=== PATIENT | female | born 1930 | race Caucasian/White ===

== ENCOUNTER 2017-09-10 09:06 | Inpatient (IN) | payer MEDICARE ==
--- NOTE | 2017-09-10 09:23 | ED PDOC ---
Arrival/HPI - General Chief Complaint: Abdominal Pain Time Seen by Provider: 09/10/17 09:11 Historian: Patient, Family - History of Present Illness Narrative History of Present Illness (Text): 09/10/17 09:13 87 y/o female, pmh including htn/hyperlipidemia/cad/chf/colitis, nkda, biba c/o cough/shortness of breath and chronic abdominal pain for 5 days. As per the patient and family, the patient has chronic abdominal pain but been having exertional shortness of breath with dry cough for the past 5 days, seen by the pmd Dr. Lieberman which started on the azithromycin with limited relief. Pt. has no fever or chills, admits dry cough with exertional shortness of breath, no chest pain or headache, no neck stiffness, no nausea or vomiting, no night sweat , no rash, no black color stool or discoloration, no other medical or psychological complaints. Past Medical History - Provider Review Nursing Documentation Reviewed: Yes - Tetanus Immunization Tetanus Immunization: Unknown - Reproductive Menopause: Yes - Cardiac Hx Hypertension: Yes - Pulmonary Hx Respiratory Disorders: No - Neurological Hx Neurological Disorder: No - HEENT Hx HEENT Disorder: Yes Hx Cataracts: Yes (L EYE CATARACT REMOVED) - Renal Hx Renal Disorder: No - Endocrine/Metabolic Hx Endocrine Disorders: No - Hematological/Oncological Hx Blood Disorders: No - Integumentary Hx Dermatological Disorder: No - Musculoskeletal/Rheumatological Hx Musculoskeletal Disorders: No Hx Falls: No - Gastrointestinal Hx Gastrointestinal Disorders: No - Genitourinary/Gynecological Hx Genitourinary Disorders: Yes (CESEREAN SECTION X 1) - Psychiatric Hx Depression: No Hx Emotional Abuse: No Hx Physical Abuse: No Hx Substance Use: No - Surgical History Hx Open Heart Surgery: Yes - Anesthesia Hx Anesthesia: No Hx Anesthesia Reactions: No Hx Malignant Hyperthermia: No - Suicidal Assessment Feels Threatened In Home Enviroment: No Family/Social History - Physician Review Nursing Documentation Reviewed: Yes Family/Social History: Unknown Family HX Smoking Status: Never Smoked Hx Alcohol Use: No Hx Substance Use: No Hx Substance Use Treatment: No Allergies/Home Meds Allergies/Adverse Reactions: Allergies No Known Allergies Allergy (Verified 11/29/13 19:37) Home Medications: Home Meds Medication Instructions Recorded Confirmed Acetaminophen [Tylenol Extra 500 mg PO Q4 PRN 11/29/13 09/10/17 Strength] Ciprofloxacin HCl [Cipro] 500 mg PO BID 07/13/14 09/10/17 Lisinopril 10 mg PO DAILY 07/13/14 09/10/17 Omeprazole 20 mg PO DAILY 07/13/14 09/10/17 Oxycodone HCl/Acetaminophen 1 tab PO BID 07/13/14 09/10/17 [Oxycodone HCl and Acetaminophen 325 mg-5 mg] Simvastatin 10 mg PO DAILY 07/13/14 07/13/14 Vitamin B Complex & Vitamin C 1 tab PO DAILY 07/13/14 09/10/17 [Strovite] Review of Systems - Review of Systems Constitutional: absent: Fatigue, Fevers Eyes: absent: Vision Changes ENT: absent: Hearing Changes Respiratory: SOB, Cough. absent: Sputum, Wheezing Cardiovascular: absent: Chest Pain Gastrointestinal: Abdominal Pain. absent: Diarrhea, Nausea, Vomiting Skin: absent: Rash, Pruritis Neurological: absent: Headache, Dizziness Psychiatric: absent: Anxiety, Depression, Suicidal Ideation Physical Exam Vital Signs Reviewed: Yes Vital Signs Temp Pulse Resp BP Pulse Ox 09/10/17 11:44 115/57 L 09/10/17 10:54 68 18 118/65 98 09/10/17 09:18 99.0 F 75 18 116/60 97 09/10/17 09:10 18 97 Temperature: Afebrile Blood Pressure: Normal Pulse: Regular Respiratory Rate: Normal Appearance: Positive for: Well-Appearing, Non-Toxic, Comfortable Pain Distress: Mild Mental Status: Positive for: Alert and Oriented X 3 - Systems Exam Head: Present: Atraumatic, Normocephalic Pupils: Present: PERRL Extroacular Muscles: Present: EOMI Conjunctiva: Present: Normal Mouth: Present: Moist Mucous Membranes Neck: Present: Normal Range of Motion Respiratory/Chest: Present: Clear to Auscultation, Good Air Exchange. No: Respiratory Distress, Accessory Muscle Use Cardiovascular: Present: Regular Rate and Rhythm, Normal S1, S2, Peripheal Pulses Present. No: Murmurs, Irregular Rhythm, Tachycardic, Bradycardic, Rub, Gallop, Muffled Abdomen: Present: Tenderness (mild epigastric and lt. sided abdominal tenderness ), Normal Bowel Sounds. No: Distention, Peritoneal Signs, Rebound, Guarding Back: Present: Normal Inspection Upper Extremity: Present: Normal Inspection. No: Cyanosis, Edema Lower Extremity: Present: Normal Inspection. No: Edema Neurological: Present: GCS=15, CN II-XII Intact, Speech Normal Skin: Present: Warm, Dry, Normal Color. No: Rashes Psychiatric: Present: Alert, Oriented x 3, Normal Insight, Normal Concentration Medical Decision Making ED Course and Treatment: 09/10/17 09:34 -labs/cardiac enzyme/bnp/ua -CXR -CT abdomen and pelvis -IV pepcid/aspirin 325mg po -EKG -Observe and reassess 09/10/17 10:08 -Pt. declined vbg lab work. 09/10/17 11:23 -HEART Score: 6, moderate -WELLS Criteria is negative for PE -EKG: SR @ 75 BPM, 1st degree heart block, nonspecific ST changes noted on the V2 and V4 compared with previous ekgs, no T wave inversion. -Chest xray: +consolidation/infiltrate noted -CT abdomen and pelvis: No acute findings -Labs are non-significant except: BNP 6900 from 5710, Creatinine 1.4 from 0.9 -UA show +UTI, urine culture and rocephine/azithromycin 1gm IV ordered -IV lasix 20mg ordered -Blood culture added 09/10/17 11:45 -I explained all lab works and radiology studies with the family and Dr. Lieberman , both agreed to be admitted with Dr. Wagner and Dr. Ortega for the routine - Lab Interpretations Lab Results: 09/10/17 09:40 09/10/17 09:40 Lab Results 09/10/17 10:00: Urine Color Yellow, Urine Appearance Sl cloudy, Urine pH 6.5, Ur Specific Meherrin 1.010, Urine Protein 30 H, Urine Glucose (UA) Negative, Urine Ketones Negative, Urine Blood Moderate H, Urine Nitrate Negative, Urine Bilirubin Negative, Urine Urobilinogen 0.2, Ur Leukocyte Esterase Large H, Urine RBC 2 - 5, Urine WBC Tntc, Ur Epithelial Cells 6 - 8, Urine Bacteria Small , Urine Other Mucus 09/10/17 09:40: PT 14.7 H, INR 1.27 H, APTT 28.0 09/10/17 09:40: WBC 9.7 D, RBC 3.76, Hgb 10.8 L, Hct 32.6 L, MCV 86.7, MCH 28.7 , MCHC 33.1, RDW 14.0, Plt Count 251, MPV 9.9, Gran % 64.0, Lymph % (Auto) 21.3 L, Denali % (Auto) 14.0 H, Eos % (Auto) 0.4 L, Baso % (Auto) 0.3, Gran # 6.19, Lymph # (Auto) 2.1, Denali # (Auto) 1.4 H, Eos # (Auto) 0.0, Baso # (Auto) 0.03 09/10/17 09:40: Sodium 139, Potassium 4.4, Chloride 100, Carbon Dioxide 29, Anion Gap 14, BUN 21, Creatinine 1.4 H, Est GFR ( Amer) 43, Est GFR (Non- Af Amer) 36, Random Glucose 118 H, Calcium 10.2, Magnesium 2.1, Total Bilirubin 0.5, AST 22, ALT 26, Alkaline Phosphatase 62, Lactate Dehydrogenase 455, Total Creatine Kinase 25 L, Troponin I 0.02 D, NT-Pro-B Natriuret Pep 6900 H, Total Protein 8.2, Albumin 3.9, Globulin 4.3, Albumin/Globulin Ratio 0.9 L - RAD Interpretation Radiology Orders: 09/10/17 09:27 ABD & PELVIS W/O PO OR IV CONT [CT] Stat CHEST TWO VIEWS (PA/LAT) [RAD] Stat Chest xray: ISTORY: cough, shortness of breath COMPARISON: 07/13/2014 TECHNIQUE: Chest PA and lateral FINDINGS: LUNGS: There is minimal vascular congestion. There is a minimal patchy infiltrate in the right lower lobe PLEURA: No significant pleural effusion identified. No pneumothorax apparent. CARDIOVASCULAR: Mild cardiomegaly OSSEOUS STRUCTURES: Sternal wires VISUALIZED UPPER ABDOMEN: Normal. OTHER FINDINGS: None. IMPRESSION: There is minimal vascular congestion. There is a minimal patchy infiltrate in the right lower lobe CT abdomen and pelvis: LOWER THORAX: Unremarkable. LIVER: Unremarkable. No gross lesion or ductal dilatation. GALLBLADDER AND BILE DUCTS: There is a small stone in the gallbladder PANCREAS: Unremarkable. No gross lesion or ductal dilatation. SPLEEN: Unremarkable. ADRENALS: Unremarkable. No mass. KIDNEYS AND URETERS: Unremarkable. No hydronephrosis. No solid mass. There is minimal perinephric stranding on the left. There is no evidence of hydronephrosis or obstruction. VASCULATURE: Unremarkable. No aortic aneurysm. BOWEL: Unremarkable. No obstruction. No gross mural thickening. APPENDIX: Unremarkable. Normal appendix. PERITONEUM: Unremarkable. No free fluid. No free air. LYMPH NODES: Unremarkable. No enlarged lymph nodes. BLADDER: Unremarkable. REPRODUCTIVE: Unremarkable. BONES: No acute fracture. OTHER FINDINGS: None. IMPRESSION: No acute findings Phone Specialist: Radiologist - EKG Interpretation EKG Interpretation (Text): 09/10/17 09:35 -EKG: SR @ 75 BPM, 1st degree heart block, nonspecific ST changes noted on the V2 and V4 compared with previous ekgs, no T wave inversion. Interpreted by ED Physician: Yes Type: 12 lead EKG Comparison: Com.w/previous EKG - Medication Orders Current Medication Orders: Azithromycin (Zithromax 500mg In Ns) 500 mg in 250 mls @ 167 mls/hr IVPB STAT STA PRN Reason: Protocol Stop: 09/10/17 12:50 Last Admin: 09/10/17 11:43 Dose: 167 mls/hr eMAR Start Stop Document 09/10/17 11:43 SF (Rec: 09/10/17 11:44 [place] [facility] [id number] Intravenous Solution Start Date 09/10/17 Start Time 11:43 End Date 09/10/17 End time 13:15 Total Infusion Time 92 Discontinued Medications Aspirin (Aspirin) 325 mg PO STAT STA Stop: 09/10/17 09:28 Last Admin: 09/10/17 10:09 Dose: 325 mg Famotidine (Pepcid) 20 mg IVP STAT STA Stop: 09/10/17 09:28 Last Admin: 09/10/17 10:10 Dose: 20 mg IVP Administration Document 09/10/17 10:10 SF (Rec: 09/10/17 10:10 [place] [facility] [id number] Charges for Administration # of IVP Administrations 1 Furosemide (Lasix) 20 mg IVP STAT STA Stop: 09/10/17 11:18 Last Admin: 09/10/17 11:44 Dose: 20 mg MAR Blood Pressure Document 09/10/17 11:44 SF (Rec: 09/10/17 11:46 [place] [facility] [id number] Blood Pressure Blood Pressure (100/60-150/90) 115/57 IVP Administration Document 09/10/17 11:44 SF (Rec: 09/10/17 11:46 [place] [facility] [id number] Charges for Administration # of IVP Administrations 1 Ceftriaxone Sodium (Rocephin 1 Gram Ivpb) 1 gm in 100 mls @ 200 mls/hr IVPB STAT STA PRN Reason: Protocol Stop: 09/10/17 11:00 Last Admin: 09/10/17 10:59 Dose: 200 mls/hr eMAR Start Stop Document 09/10/17 10:59 SF (Rec: 09/10/17 10:59 SF [id number] Intravenous Solution Start Date 09/10/17 Start Time 10:59 End Date 09/10/17 End time 11:30 Total Infusion Time 31 - PA / [employer] / Resident Statement / has reviewed & agrees with the documentation as recorded. Disposition/Present on Arrival - Present on Arrival Any Indicators Present on Arrival: No History of DVT/PE: No History of Uncontrolled Diabetes: No Urinary Catheter: No History of Decub. Ulcer: No History Surgical Site Infection Following: None - Disposition Have Diagnosis and Disposition been Completed?: Yes Diagnosis: Pneumonia, CHF (congestive heart failure), UTI (urinary tract infection), Failure of outpatient treatment Disposition: HOSPITALIZED Disposition Time: 11:23 Patient Plan: Admission, Telemetry Patient Problems: Current Active Problems Problem Status Onset Pneumonia Acute CHF (congestive heart failure) Acute UTI (urinary tract infection) Acute Failure of outpatient treatment Acute Condition: STABLE Discharge Instructions (ExitCare): Heart Failure (ED) Referrals: [facility], [Non-Staff] - Follow up with primary Forms: Vuze (Slovenian)
[2017-09-10 10:01] LABS: ALB/GLOB RATIO 0.9 (1.1-1.8); ALBUMIN 3.9 g/dL (3.0-4.8); BASO # 0.03 K/mm3 (0.0-2.0); BASO % 0.3 % (0.0-3.0); CALCIUM 10.2 mg/dL (8.4-10.5); EOS % 0.4 % (1.5-5.0); GRAN # 6.19 (1.4-6.5); HEMOGLOBIN 10.8 g/dL (12.0-16.0); LYMPH # 2.1 (1.2-3.4); LYMPH % 21.3 % (22.0-35.0); MEAN CELL VOLUME 86.7 fl (80.0-105.0); MEAN CORPUSCULAR HEMOGLOBIN 28.7 pg (25.0-35.0); MEAN CORPUSCULAR HGB CONC 33.1 g/dl (31.0-37.0); MEAN PLATELET VOLUME 9.9 fl (7.0-11.0); MONO # 1.4 (0.1-0.6); RBC 3.76 10^6/uL (3.5-6.1); WHITE BLOOD COUNT 9.7 10^3/ul (4.5-11.0)
[2017-09-10 10:05] LABS: INR 1.27 (0.93-1.08); PROTHROMBIN TIME 14.7 SECONDS (9.4-12.5)
[2017-09-10 10:11] LABS: PH,URINE 6.5 (4.7-8.0); URINE BILIRUBIN NEGATIVE (NEGATIVE); URINE BLOOD MODERATE (NEGATIVE); URINE GLUCOSE (UA) NEGATIVE (NEGATIVE); URINE LEUKOCYTE ESTERASE LARGE Leu/uL (NEGATIVE); URINE PROTEIN 30 mg/dL (<30 mg/dL); URINE UROBILINOGEN 0.2 E.U./dL (<1 E.U./dL)
[2017-09-10 10:12] LABS: URINE APPEARANCE SL CLOUDY (CLEAR); URINE COLOR YELLOW (YELLOW)
[2017-09-10 10:12] LABS: TROPONIN I 0.02 ng/mL
[2017-09-10 10:18] LABS: URINE WBC TNTC /hpf (0-6)
[2017-09-10 10:20] LABS: URINE BACTERIA SMALL (NEG)
[2017-09-10] MEDS ORDERED: cefTRIAXone 1 gm 1 GM/100 ML BAG IVPB STA (10:31)
--- NOTE | 2017-09-10 10:55 | CT ---
PROCEDURE: CT Abdomen and Pelvis without intravenous contrast HISTORY: abdominal pain, chronic COMPARISON: None. TECHNIQUE: Without contrast.. Contrast Dose: Radiation dose: Total exam DLP = Total exam DLP = 541 mGy-cm. This CT exam was performed using one or more of the following dose reduction techniques: Automated exposure control, adjustment of the mA and/or kV according to patient size, and/or use of iterative reconstruction technique. FINDINGS: LOWER THORAX: Unremarkable. LIVER: Unremarkable. No gross lesion or ductal dilatation. GALLBLADDER AND BILE DUCTS: There is a small stone in the gallbladder PANCREAS: Unremarkable. No gross lesion or ductal dilatation. SPLEEN: Unremarkable. ADRENALS: Unremarkable. No mass. KIDNEYS AND URETERS: Unremarkable. No hydronephrosis. No solid mass. There is minimal perinephric stranding on the left. There is no evidence of hydronephrosis or obstruction. VASCULATURE: Unremarkable. No aortic aneurysm. BOWEL: Unremarkable. No obstruction. No gross mural thickening. APPENDIX: Unremarkable. Normal appendix. PERITONEUM: Unremarkable. No free fluid. No free air. LYMPH NODES: Unremarkable. No enlarged lymph nodes. BLADDER: Unremarkable. REPRODUCTIVE: Unremarkable. BONES: No acute fracture. OTHER FINDINGS: None. IMPRESSION: No acute findings
[2017-09-10] MEDS ORDERED: Azithromycin 500MG/NS 250ml 500 MG/250 ML BAG IVPB STA (11:21)
--- NOTE | 2017-09-10 11:24 | RAD ---
HISTORY: cough, shortness of breath COMPARISON: 07/13/2014 TECHNIQUE: Chest PA and lateral FINDINGS: LUNGS: There is minimal vascular congestion. There is a minimal patchy infiltrate in the right lower lobe PLEURA: No significant pleural effusion identified. No pneumothorax apparent. CARDIOVASCULAR: Mild cardiomegaly OSSEOUS STRUCTURES: Sternal wires VISUALIZED UPPER ABDOMEN: Normal. OTHER FINDINGS: None. IMPRESSION: There is minimal vascular congestion. There is a minimal patchy infiltrate in the right lower lobe
[2017-09-10] MEDS ORDERED: ACETAMINOPHEN 500 MG PO PRN ×2 (14:59→15:05)
[2017-09-10] MEDS ORDERED: Non Formulary Medication (Simvastatin [Simvastatin] 10 MG) PO SCH (15:00)
[2017-09-10] MEDS ORDERED: LOSARTAN POTASSIUM 50 MG PO SCH (15:00)
[2017-09-10] MEDS ORDERED: TOLTERODINE TARTRATE 4 MG PO SCH (15:00)
[2017-09-10] MEDS ORDERED: ASPIRIN 81 MG PO SCH (15:00)
[2017-09-10] MEDS ORDERED: Non Formulary Medication (Omeprazole [Omeprazole] 40 MG) PO SCH (15:00)
[2017-09-10 17:06] VITALS: BMI 27.4
[2017-09-10] MEDS: Albuterol-Ipratrop 3 mg / 0.5 (3 ml) UD IH SCH (19:47)
--- NOTE | 2017-09-10 20:23 | CARD ---
APPROVED REPORT EKG Measurement Heart [id number] CO [id number] <Conclusion> Sinus rhythm with 1st degree AV block Nonspecific intraventricular block Cannot rule out Anterior infarct, age undetermined Abnormal ECG
[2017-09-10] MEDS: Cefepime IV 2 gm in NS 2 GM/100 ML BAG IVPB SCH (22:37)
--- NOTE | 2017-09-11 02:11 | CON ---
DATE: 09/10/2017 PULMONARY CONSULTATION REFERRING PHYSICIAN: Ryan Lieberman MD. REASON FOR CONSULTATION: Cough, shortness of breath and pneumonia. HISTORY OF PRESENT ILLNESS: This is an 87-year-old female with past medical history significant for hypertension, hyperlipidemia, congestive heart failure, coronary artery disease and colitis, comes into emergency room with a cough, shortness of breath, muscular-type abdominal pain. No nausea. No vomiting. No diarrhea. No leg pain. No leg swelling. PAST MEDICAL HISTORY: Hypertension, hyperlipidemia, coronary artery disease, congestive heart failure, colitis. ALLERGIES: NONE KNOWN. SOCIAL HISTORY: Nonsmoker. Nondrinker. FAMILY HISTORY: No significant cardiopulmonary disease is reported. MEDICATIONS: She is on Tylenol p.r.n. basis, Tudorza inhaler daily, Coreg 12.5 mg twice a day, Cozaar 50 mg daily, doxycycline 100 mg twice a day, DuoNeb four times daily, Ecotrin 81 mg daily, Lasix 40 mg daily, Lipitor 10 mg daily, cefepime 2 g IV every 12 hours and Protonix 40 mg daily. REVIEW OF SYSTEMS: No headache. Has some rhinitis, cough, shortness of breath, epigastric pain. No dysuria, or leg pain or leg swelling. PHYSICAL EXAMINATION: GENERAL: Lying in the bed. VITAL SIGNS: Temp is 99, heart rate 70, respiratory rate is , blood pressure 117/62, pulse of 99% on 2 L nasal cannula. HEENT: Moist mucous membrane. Crowded airway. NECK: Supple. No JVD. LUNGS: Have scattered rhonchi and wheezing. HEART: S1, S2. ABDOMEN: Mild epigastric tenderness. Soft abdomen. EXTREMITIES: There is no edema. NEUROLOGIC: Awake, alert. Follows simple command. LABORATORY DATA: Shows hemoglobin 10.8, hematocrit 32.6, WBC 9.7, platelet is 251. INR 1.27. Sodium 139, potassium 4.4, chloride 100, bicarbonate 29, BUN 21, creatinine 1.4, glucose 118 and calcium 10.2. AST 22, ALT 26, alk phos is 62. Troponin 0.02. Albumin is 3.9. ProBNP 6900. CAT scan of the abdomen is unremarkable. Chest x-ray shows vascular congestion and also patchy infiltrate in the right lower lobe. IMPRESSION AND PLAN: Right lower lobe pneumonia, acute bronchitis, rule out viral syndrome, congestive heart failure, hypertension, coronary artery disease, history of colitis, epigastric pain, may have gastroesophageal reflux disease, rule out sleep apnea syndrome. I agree with Dr. Lieberman with the present management. Continue antibiotics. Add inhaled bronchodilator. Gastric prophylaxis. Keep head at 45 degrees. Gastroesophageal reflux disease precaution. Follow up x-ray to assure the stability of infiltrate. Thank you and we will follow with you. Kirstin Bello MD
--- NOTE | 2017-09-11 02:53 | CON ---
DATE: 09/10/2017 LOCATION: The patient is in room 373, bed 3. REASON FOR CONSULTATION: Shortness of breath, CHF, history of aortic valve, tissue valve replacement, coronary artery bypass surgery, and hypertension. HISTORY OF PRESENT ILLNESS: The patient is an 87-year-old female, who had aortic valve replacement with pig valve, tissue valve and coronary artery bypass surgery 7 years ago at [facility]. Her valvular disease are related to probably, as per the patient's family, rheumatic fever in childhood. The patient also known to have high blood pressure since last 7 years, also asthma and GERD. The patient also had urinary incontinence and had frequent urinary tract infections. The patient now admitted since last week. The patient is getting shortness of breath and last night shortness of breath got worse. The patient also had dry cough since last 4 or 5 days. No history of fever or chills. The patient also getting very weak and tired. Last night also the patient had chills along with shortness of breath. PAST MEDICAL HISTORY: As mentioned before. The patient known to have aortic valve replacement with tissue valve, pig valve and also had coronary artery bypass surgery, hypertension, asthma, GERD, urinary incontinence, frequent urinary tract infections. PERSONAL HISTORY: Denies smoking, denies drinking. ALLERGIES: THE PATIENT HAS NO ALLERGIES. HOME MEDICATIONS: The patient's home medications included Cipro 500 b.i.d., lisinopril 10 mg daily, omeprazole 20 daily, simvastatin 10 daily. The patient was also taking aspirin one daily. REVIEW OF SYSTEMS: All the systems reviewed, positive mentioned in the history, others are negative. PHYSICAL EXAMINATION: VITAL SIGNS: Blood pressure 117/62, respiration 18, temperature 99.1, pulse is 76. HEENT: Head is normocephalic. Eyes, pupils are normal. Conjunctivae are slightly pale. NECK: JVP low. Carotids are equal. THORAX: AP diameter normal. LUNGS: Basilar rales. CARDIOVASCULAR: S1 and S2. Systolic murmur grade 2/6. No rub. ABDOMEN: Soft. No organomegaly. Bowel sounds are normal. EXTREMITIES: No clubbing. No cyanosis. LABORATORY DATA: WBC 9.7, hemoglobin 10.8, hematocrit 32.6, and platelets 251. Sodium 139, potassium 4.4, BUN 21, creatinine 1.4, and random glucose 118. AST and ALT are normal. Total troponin negative x2. NT-proB natriuretic peptide 6900. Total protein and albumin are normal. EKG showed sinus rhythm with frequent premature ventricular complexes, minimal voltage criteria by LVH may be normal variant, T-wave abnormality, left axis deviation. Chest x-ray showed mild vascular congestion and minimal patchy infiltrate in the right lower lobe. Abdomen and pelvic CT, nonsignificant. DIAGNOSES: Mild congestive heart failure, infiltrate right lower lobe with fever and cough suggestive of pneumonia, hypertension, status post aortic valve replacement, coronary artery disease, status post coronary artery bypass surgery, asthma, gastroesophageal reflux disease, and urinary incontinence. PLAN: We will give carvedilol 12.5 mg b.i.d., losartan 50 mg p.o. daily, aspirin 81 mg p.o. daily, furosemide 40 mg IV daily, Lipitor 10 mg p.o. daily, cefepime 2 g IV every 12 hours, and Protonix 40 daily. We will monitor intake and output with you and we will follow with you. Kirstin Hammond MD
[2017-09-11] MEDS: Acetylcysteine 20% Inhal Soln (4ml) INH SCH ×2 (08:06→22:00)
[2017-09-11] MEDS ORDERED: cefTRIAXone 1 gm 1 GM/100 ML BAG IVPB SCH (10:00)
[2017-09-11] MEDS: Pantoprazole 40 mg EC Tab PO SCH (10:38)
[2017-09-11] MEDS: TOLTERODINE 4 MG PO SCH (10:40)
[2017-09-11] MEDS: Cefepime IV 2 gm in NS 2 GM/100 ML BAG IVPB SCH ×2 (10:42→22:26)
--- NOTE | 2017-09-11 11:17 | PN ---
DATE: 09/11/2017 PULMONARY PROGRESS NOTE REFERRING PHYSICIAN: Ryan Lieberman MD. SUBJECTIVE: The patient is lying in the bed, head at 45 degrees. Feels better. Decreased cough. No nausea. No vomiting. Abdominal pain is better. No leg pain, leg swelling. OBJECTIVE: GENERAL: In no acute distress. VITAL SIGNS: Temperature is 98, heart rate 63, respiratory rate is 20, blood pressure 118/51, pulse ox 98% on nasal cannula. HEENT: Moist mucous membrane. Crowded airway. Mallampati score is 4. NECK: Supple. No JVD. LUNGS: Has a better airflow with scattered rhonchi. HEART: S1 and S2. ABDOMEN: Soft, nontender. No organomegaly. EXTREMITIES: No edema. NEUROLOGIC: Awake and alert. Follows simple command. MEDICATIONS: She is on extra-strength Tylenol p.r.n. basis, Mucomyst 20% inhaled twice a day, Coreg 12.5 mg twice a day, Cozaar 50 mg daily, doxycycline 100 mg twice a day, DuoNeb four times daily, Ecotrin 81 mg daily, Lasix 40 mg IV daily, Lipitor 10 mg daily, cefepime 2 g IV every 12 hours, Protonix 40 mg daily. LABORATORY DATA: Reviewed. No new lab is available since yesterday. IMPRESSION AND PLAN: Right lower lobe pneumonia, acute bronchitis, may have a viral syndrome, congestive heart failure, hypertension, coronary artery disease, history of colitis, epigastric pain, may have a gastroesophageal reflux disease. Rule out sleep apnea syndrome. Pulmonary point of view, doing okay. Keep head at 45 degrees. Continue antibiotics. Continue inhaled bronchodilator. Gastric prophylaxis. Sequential compression device to lower extremity. Thank you and we will follow with you. Kirstin eBllo MD
[2017-09-11] MEDS: Albuterol-Ipratrop 3 mg / 0.5 (3 ml) UD IH SCH ×2 (11:48→21:59)
--- NOTE | 2017-09-11 16:20 | PN ---
DATE: 09/11/2017 LOCATION: Patient in room 373, bed 3. REASON FOR CONSULTATION AND FOLLOWUP: Shortness of breath, CHF, respiratory tract infection, pneumonia, history of aortic tissue valve replacement, coronary artery bypass surgery, hypertension. SUBJECTIVE: Patient lying comfortably in bed. She says her breathing is better. Patient still has cough. Denies chest pain or palpitation. PHYSICAL EXAMINATION: VITAL SIGNS: Blood pressure 118/51, respirations 20, pulse 95, temperature 98.2. HEENT: Head is normocephalic. Eyes: Pupils normal. Conjunctivae slightly pale. NECK: JVP low. Carotids equal. THORAX: AP diameter normal. Operation scar from previous cardiac surgery. LUNGS: Few basilar rales. CARDIOVASCULAR: S1, S2, systolic murmur grade II/. ABDOMEN: Soft. No organomegaly. Bowel sounds normal. EXTREMITIES: No clubbing, no cyanosis. LABORATORY DATA: WBC 9.7, hemoglobin 10.8, hematocrit 32.6, platelets 251. Sodium 139, potassium 4.4, BUN 21, creatinine 1.4, calcium 10.2, magnesium and phosphorus normal. Troponin less than 0.02. NT-proB natriuretic pep 6900. DIAGNOSES: Mild congestive heart failure due to coronary artery disease and valvular heart disease; infiltrate, right lower lobe consistent with pneumonia with cough and fever; hypertension; status post aortic tissue valve replacement, pig valve; coronary artery disease, status post coronary artery bypass surgery; asthma; gastroesophageal reflux disease; urinary incontinence; frequent episodes of urinary tract infection. 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 Patient on carvedilol 12.5 b.i.d., losartan 50 daily, doxycycline 100 mg IV every 2 hours, aspirin 81 daily, furosemide 40 IV daily, atorvastatin 10 mg daily, cefepime 2 g IV every 12 hours, Protonix 40 p.o. daily. We will continue present therapy. .. Kirstin Hammond MD
--- NOTE | 2017-09-11 21:41 | HP ---
DATE OF EXAM: 09/10/2017 CHIEF COMPLAINT: The patient's main complaint was abdominal pain. She also complained of short of breath and cough. 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 She does have acid reflux and she used Motrin p.r.n. The patient has been seen in the office maybe 10 days ago for cough. She was given CPAP and she was getting nebulizer inhalers, but did not do well, came to the ER for further evaluation. She denies any nausea, vomiting, diarrhea. She denied any chest pain, any GI black stools or vomiting blood or any red blood per rectum. There is no other complaint. The patient came to the ER for further evaluation. She was more concerned about her short of breath than her abdominal pain. PAST MEDICAL HISTORY: As I mentioned before, she does have a history of hiatal hernia, acid reflux. She has a history of rectal fissure with treated hemorrhoids. She had a history of gastritis, refluxes, ascites. She has a history of coronary artery disease. She had bypass surgery more than 8 years ago, biologic aortic valve replacement. She also was admitted for congestive heart failure before, chronic shoulder arthritis, knee arthritis. MEDICATIONS: The patient takes multiple medications including Lasix 20 mg p.o. daily, aspirin 81 mg daily, Tudorza inhaler, omeprazole 40 mg daily. She also takes tolterodine tartrate ER 4 mg daily, multivitamins, Flagyl she got that recently one tab every 8 hours, Cozaar 50 mg, simvastatin 10 mg, and Coreg 12.5 mg p.o. b.i.d. ALLERGIES: NO KNOWN ALLERGIES. SOCIAL HISTORY: No smoke. No drinking. She lives with her family. She is a . She does not have any history of smoking. REVIEW OF SYSTEM: She does complain always of acid reflux, GI symptoms, shoulder pain, back pain. She does sometimes get short of breath, rectal pain sometimes with bowel movement, and recurrent dysuria due to the recurrent UTI. PHYSICAL EXAMINATION: GENERAL: She breaths comfortably now. VITAL SIGNS: Temperature is 99.1, heart rate 76, blood pressure 117/62, respirations 18, saturation 99% on 2 liters. HEAD AND NECK: Normal. No JVD. No thyromegaly. CHEST: Clear. Good air entry. CARDIAC: First sound and second sound normal. ABDOMEN: Soft, tender epigastric on upper abdomen. EXTREMITIES: No edema. NEUROLOGIC: Normal. LABORATORY STUDY: White count 9.7, hemoglobin 10.8, hematocrit 32.6, platelets 251. Chemistry; sodium 139, potassium 4.4, chloride 100, bicarbonate 29, BUN 21, creatinine 1.4, blood sugar 118. Liver function tests is normal. Troponin 0.2 and her BNP is 6900. The patient has a PT, PTT within normal range. She had urine analysis, which shows large white blood cells, too numerous to count. Chest x-ray also was done, which showed vascular congestion with patchy infiltrate right lower lobe. IMPRESSION AND PLAN: An 87-year-old female who came in with short of breath, coughing, upper abdominal pain, tender upper abdomen. CT abdomen was negative. Chest x-ray shows right infiltrate and high . We will admit the patient for: 1. Acute on top of chronic systolic heart failure. 2. Acute community-acquired right lower lobe pneumonia. 3. Abdominal pain, etiology unclear. Plan is to admit the patient on IV Lasix, IV antibiotic. ID consult, Pulmonary consult and we will follow up clinically. Resume her medications, monitor her vitals, blood pressure and we will follow up clinically. Ryan Lieberman MD
--- NOTE | 2017-09-11 22:07 | CON ---
DATE: LOCATION: The patient was seen earlier this morning in room 377, bed 3. CHIEF COMPLAINT: Weakness and shortness of breath times several days. HISTORY OF PRESENT ILLNESS: This is an 87-year-old female who has a history of congestive heart failure, coronary artery disease, hypertension, colitis, who has had an aortic valve replacement with pig valve and has had coronary artery bypass graft 7 years ago, was admitted to the emergency room with shortness of breath, cough and low-grade fevers. No headaches or blurred vision. REVIEW OF SYSTEMS: No chest pain. She is having cough with shortness of breath. She has been complaining of occasional dysuria. No frequency. No diarrhea or constipation. She does have occasional abdominal discomfort. PAST MEDICAL HISTORY: Significant for coronary artery disease, hypertension, congestive heart failure, colitis. PAST SURGICAL HISTORY: Significant for aortic valve replacement with pig valve, and coronary artery bypass graft 7 years ago. ALLERGIES: PATIENT HAS NO KNOWN ALLERGIES. MEDICATIONS AT HOME: Reveals the patient to have statin, lisinopril and aspirin. PHYSICAL EXAMINATION: VITAL SIGNS: The patient is in bed with a temperature of 98, T-max was 99.1; heart rate of 95, it was up to 100; respiratory rate of 20, and blood pressure of 118/50, and O2 saturation is 98%. HEENT: Unremarkable. NECK: Supple. LUNGS: Had bibasilar rales, bronchial sounds in the right base. HEART: Normal S1 and S2. ABDOMEN: Soft, nontender. No rebound or guarding. No masses. LABORATORY DATA: Reveals the patient's white count is 9.7, hemoglobin of 10, platelets of 251. Coagulation is noted. Chemistry reveals a BUN of 21, creatinine 1.4, BNP 6900, and random glucose is 111. Urinalysis reveals too numerous to count wbc's with small bacteria. Chest x-ray shows right lower lobe infiltrate. CAT scan of the abdomen is negative. ASSESSMENT AND PLAN: This is an 87-year-old female with coronary artery disease, hypertension, congestive heart failure, colitis, with the history of aortic valve replacement with pig valve, section, coronary artery bypass graft. Right lower lobe pneumonia, community-acquired pneumonia, with acute kidney injury, her last creatinine on last admission was 0.9, is up to 1.4, with urinary tract infection with symptoms and acute systolic congestive heart failure. We will treat the patient with doxycycline and meropenem. Check on the blood cultures, sputum cultures, urine cultures, procalcitonin and Legionella, and will make further recommendations upon availability of initial results. We will follow with you. Callum May MD
[2017-09-12] MEDS: Acetylcysteine 20% Inhal Soln (4ml) INH SCH ×2 (07:37→22:20)
[2017-09-12] MEDS: Cefepime IV 2 gm in NS 2 GM/100 ML BAG IVPB SCH ×2 (10:38→21:02)
[2017-09-12] MEDS: Pantoprazole 40 mg EC Tab PO SCH (10:51)
[2017-09-12] MEDS: TOLTERODINE 4 MG PO SCH (10:52)
--- NOTE | 2017-09-12 15:14 | PN ---
SUBJECTIVE: The patient is seen earlier today in room 377, bed 2. No fevers, no chills. She is doing much better. OBJECTIVE VITAL SIGNS: Temperature is 98, blood pressure is 130/60, respiratory rate of 18. HEENT: Examination is unremarkable. NECK: Supple. LUNGS: Have decreased breath sounds. HEART: Exam is normal S1, S2. ABDOMEN: Soft, nontender. LABORATORY DATA: Examination reveals a white count of 9.7, hemoglobin of 10.8, BUN of 21, creatinine of 1.4 and BNP 6900. Urinalysis is noted and Microbiology reveals a Gram-negative martha in the urine. Blood cultures are negative and review of orders reveals the patient to be on doxycycline IV and cefepime IV. ASSESSMENT AND PLAN: This is an 87-year-old female with coronary artery disease, hypertension, congestive heart failure, colitis, history of aortic valve replacement with a pig valve with section, coronary artery bypass graft, admitted with right lower lobe community-acquired pneumonia with acute kidney injury and with a Gram-negative martha urinary tract infection with acute systolic congestive heart failure, currently on cefepime and doxycycline with negative blood cultures and no growth in the blood cultures, there are gram-negative martha in the urine culture with a normal procalcitonin with a QTc of 473, maybe able to switch to p.o. doxycycline with p.o. vancomycin and p.o. doxycycline next 24 hours, pending the identification of Gram-negative martha in the urine. Callum May MD
[2017-09-12] MEDS: Albuterol-Ipratrop 3 mg / 0.5 (3 ml) UD IH SCH ×2 (16:18→22:20)
--- NOTE | 2017-09-12 21:58 | PN ---
DATE: 09/12/2017 PULMONARY PROGRESS NOTE REFERRING PHYSICIAN: Dr. Lieberman. SUBJECTIVE: The patient is lying in the bed, head at 45 degrees. Having lunch. Feels better. Decreased cough. Decreased shortness of breath. No nausea. No vomiting. No diarrhea. No leg pain. No leg swelling. PHYSICAL EXAMINATION: GENERAL: No acute distress. VITAL SIGNS: Temperature is 98, heart rate 62, respiratory rate is 18, blood pressure 108/58, pulse ox 99% on 2 L nasal cannula. HEENT: Moist mucous membrane. Crowded airway. Mallampati score is 4. NECK: Supple. No JVD. LUNGS: Has fair airflow with few rhonchi. HEART: S1 and S2. ABDOMEN: Soft, nontender. No organomegaly. EXTREMITIES: No edema. NEUROLOGIC: Awake and alert. Follow simple commands. MEDICATIONS: She is on Tylenol p.r.n. basis, Mucomyst 20% inhaled twice a day, Tudorza 400 mcg inhaled daily, Coreg 12.5 mg twice a day, Cozaar 50 mg daily, doxycycline 100 mg twice a day, DuoNeb four times daily, Ecotrin 81 mg daily, Lasix 40 mg IV daily, Lipitor 10 mg daily, cefepime 2 gm IV every 12 hours, Protonix 40 mg daily. LABORATORY DATA: Reviewed. Urine culture has E. coli. IMPRESSION AND PLAN: Right lower lobe pneumonia, also has an Escherichia coli urinary tract infection, congestive heart failure, hypertension, coronary artery disease, history of colitis, epigastric pain which seems like more muscular but could be gastroesophageal reflux disease, may have a component of sleep apnea syndrome. Pulmonary point of view, she is much better, keep head at 45 degrees. Bronchodilator, antibiotics as per Infectious Diseases. Gastric prophylaxis. Sequential compression device to lower extremities. Deep venous thrombosis prophylaxis. Out of bed to chair. Physical therapy. We will recommend pulmonary function test and attended sleep study upon discharge as outpatient. Thank you, and we will follow with you. Kirstin Bello MD
[2017-09-12] MEDS: Enoxaparin 30 mg Syringe SC SCH (23:36)
[2017-09-13] MEDS ORDERED: Iohexol 350 MG/100 ML VIAL ONE (08:45)
--- NOTE | 2017-09-13 09:11 | CON ---
DATE: 09/11/2017 This patient was seen and evaluated earlier today. REASON FOR CONSULTATION: Abdominal pain. Patient's grandson Dr. Dyson over the phone interpreted the history, assisted in the history. HISTORY OF PRESENT ILLNESS: This 87-year-old patient with past medical history of hypertension, coronary artery disease, dyslipidemia, history of CHF, colitis, brought to the hospital with complaints of shortness of breath. Patient also was complaining of chronic abdominal pain, slightly more pronounced for the last 5 days. Patient has history of shortness of breath and dry cough for the past 5 days. Patient was started on IV antibiotics as outpatient, azithromycin. GI consult was requested to evaluate for the abdominal pain. Patient had episodes of loose bowel movements today. No bleeding per rectum. Patient had . As per the patient's grandson, the patient had an endoscopy and a colonoscopy done. Patient had endoscopy in the [place] in the past by Dr. Townsend. PAST MEDICAL HISTORY: Other past medical history significant for hypertension, dyslipidemia, congestive heart failure. ALLERGIES: NO KNOWN DRUG ALLERGIES. SOCIAL HISTORY: Denies smoking, alcohol. FAMILY HISTORY: Noncontributory. REVIEW OF SYSTEMS: Positive as above. Other systems reviewed and negative. PHYSICAL EXAMINATION: GENERAL: Patient is lying on the bed, not in acute distress. VITAL SIGNS: Temperature 98, pulse 66, blood pressure 105/50. HEENT: Atraumatic, anicteric. NECK: Supple. HEART: S1, S2 heard. LUNGS: Bilateral air entry present. Few scattered rhonchi present in the lungs. ABDOMEN: Soft. There is no mass. There is a mild tenderness present in the epigastric area. EXTREMITIES: No edema, no cyanosis, no clubbing. DIAGNOSTIC DATA: The CT of the chest was reviewed, has a lung infiltrate in right lower lobe. LABORATORY DATA: Hemoglobin 10.8, hematocrit 32.6, WBC 9.7, platelets 251. Chemistries, creatinine 1.4, BUN 24. Urinalysis is also positive, has a large amount of leukocytes present. IMPRESSION: This 87-year-old patient admitted with past medical history of coronary artery disease, status post coronary artery bypass graft, had congestive heart failure, hypertension, dyslipidemia, admitted with shortness of breath, cough. Patient found to have a lung infiltrate in the CAT scan. Patient also had an urinalysis positive. Patient is being treated with antibiotics. Patient has now had a history of chronic abdominal pain. The CAT scan also showed small gallstones. As per the patient's grandson, patient had an endoscopy and colonoscopy done in the [facility], no significant finding, otherwise, it was done few years ago. The patient had episodes of loose bowel movements now. Differential diagnosis are abdominal pain, is unclear, the differential diagnosis should include peptic ulcer disease, erosive esophagitis, Clostridium difficile to be considered. Patient does have a cholelithiasis. The patient had the esophagogastroduodenoscopy and colonoscopy done in the [facility] before. PLAN: Would recommend; 1. Stool for a C. diff. 2. Start on antibiotics empirically. Patient is presently on pantoprazole 40 mg p.o. daily. We will continue that. Patient is also on aspirin and doxycycline. It is reasonable to continue the antibiotics for the time being. Discussed with the patient's family and the nursing staff. Thank you very much for allowing us to participate in the care of the patient. Lukas Martinez MD
--- NOTE | 2017-09-13 09:38 | CT ---
CT of the chest with contrast History. Acute bronchitis. Acute on chronic CHF Comments. CT of the chest was performed with IV contrast. 100 cc of Omni 351. There is some linear scarring at the right lung base which could be seen on the previous CT of the abdomen dated 09/10/2017. The lungs are otherwise clear. No evidence of CHF. No evidence of pleural effusion. There is mild cardiomegaly. Sternal wires Impression: No evidence of CHF or pneumonia
[2017-09-13] MEDS: TOLTERODINE 4 MG PO SCH (09:50)
[2017-09-13] MEDS: Meropenem IV 1 gm in NS 50 ML IVPB SCH ×2 (09:51→21:47)
[2017-09-13] MEDS: Enoxaparin 30 mg Syringe SC SCH (09:51)
[2017-09-13] MEDS: Pantoprazole 40 mg EC Tab PO SCH (09:51)
--- NOTE | 2017-09-13 10:04 | PN ---
DATE: 09/12/2017 LOCATION: Patient is in room 377, bed 2. REASON FOR CONSULTATION AND FOLLOWUP: Shortness of breath, CHF, respiratory tract infection, pneumonia, history of aortic tissue valve replacement, coronary artery bypass surgery, and hypertension. SUBJECTIVE: Patient still has cough and she says breathing is improving. Denies chest pain or palpitation. . PHYSICAL EXAMINATION: VITAL SIGNS: Blood pressure 132/68, respirations 19, pulse 67, temperature 98.2. HEENT: Head is normocephalic. Eyes: Pupils normal. Conjunctivae slightly pale. NECK: JVP low. Carotids equal. THORAX: AP diameter normal. LUNGS: Rales on the left lung. CARDIOVASCULAR: S1 and S2. Systolic murmur grade 2/6. No rub. ABDOMEN: Soft, nontender. No organomegaly. Bowel sounds normal. EXTREMITIES: No clubbing. No cyanosis. LABORATORY DATA: WBC 9.7, hemoglobin 10.8, hematocrit 32.6, platelet 251. Sodium 139, potassium 4.4, BUN 21, creatinine 1.4. NT-proB natriuretic peptide . DIAGNOSES: Mild congestive heart failure due to coronary artery disease and valvular heart disease; pneumonia with cough and fever; hypertension; status post aortic valve replacement with the tissue valve, pig valve; coronary artery disease, status post coronary artery bypass surgery; asthma; gastroesophageal reflux disease; urinary incontinence; frequent episode of urinary tract infection. PLAN: Patient is getting Coreg 12.5 b.i.d., losartan 50 daily, doxycycline hyclate 100 mg every 12 hour, DuoNeb hand nebulizer therapy, aspirin 81 daily, Lasix 40 IV daily, atorvastatin 10 daily, cefepime 2 g IV every 12 hour, Protonix 40 p.o. daily. We will repeat chest x-ray in the morning and . Kirstin Hammond MD
--- NOTE | 2017-09-13 10:11 | PN ---
DATE: 09/11/2017 SUBJECTIVE: The patient is getting short of breath and pneumonia. The patient is clinically stable. She does no short of breath, no chest pain . PHYSICAL EXAMINATION: VITAL SIGNS: Temperature 98, heart rate 66, blood pressure 105/50, saturations 97% . HEAD AND NECK: Normal. No JVD. No thyromegaly. CHEST: Clear. Few basilar crackles in the base. CARDIAC: First sound and second sound normal. Systolic murmur in the aortic area. ABDOMEN: Soft, nontender. EXTREMITIES: No edema. NEUROLOGIC: Normal. LABORATORY STUDY: Shows white count 9.7, hemoglobin 10.8, hematocrit 32.6, platelets 251. Chemistry shows sodium 139, potassium 4.4, chloride 100, bicarbonate 29, BUN 21, creatinine 1.4, blood sugar 118. Liver function tests is normal. The patient has BNP 6900. IMPRESSION AND PLAN: 1. Acute congestive heart failure, acute systolic on top of chronic. Continue current therapy . Patient is getting intravenous Lasix and monitor BUN and creatinine. We will repeat labs in Wednesday morning. 2. Community-acquired pneumonia, likely . Continue intravenous antibiotics. Patient was seen by spreader box operator . Continue cefepime. Continue inhaled bronchodilators. Follow up clinically. 3. History of chronic abdominal pain, upper gastrointestinal symptoms, mainly acid reflux symptoms. Continue pantoprazole 40 mg p.o. daily. 4. Hypertension. Monitor blood pressure. Continue Cozaar 12.5 mg b.i.d. 5. Coronary artery disease. History of aortic valve replacement, stable. We will repeat troponin. Labs in the morning and will follow up with the hand shoe cutter. Tylenol, Mucomyst, Coreg 12.5 b.i.d., Cozaar 50 once a day, doxycycline 100 b.i.d., nebulizer DuoNeb four times daily aspirin p.o. daily, Lasix 40 intravenous daily, Lipitor 10 mg p.o. daily, cefepime 2 g intravenously every 12 hours and Protonix 40 mg p.o. daily. Continue current therapy and repeat labs Hai morning. Ryan Liebreman MD
--- NOTE | 2017-09-13 10:16 | PN ---
DATE: 09/13/2017 SUBJECTIVE: This patient was seen and evaluated earlier today, feels better, tolerating the diet. No complaints of any abdominal pain. PHYSICAL EXAMINATION: VITAL SIGNS: Temperature is 98.6, pulse 68, blood pressure 95/47. HEENT: Atraumatic and anicteric. NECK: Supple. HEART: S1 and S2 heard. LUNGS: Bilateral air entry present. ABDOMEN: Soft and nontender. LABORATORY DATA: There is no recent labs now. IMPRESSION: This 87-year-old patient is admitted with pneumonia, has urinary tract infection, has a history of congestive heart failure, coronary artery disease. Patient has a history of esophagogastroduodenoscopy and colonoscopy done at the [facility]. I did discuss with the patient's grandson, . The patient had a episode of loose bowel movement, now has a bowel which is formed. He is being treated for the urinary tract infection and possible lung infiltrate, on antibiotics, we will continue that. Patient is already on proton pump inhibitor, we will continue that. We will continue to closely follow up her care and suggest further management based on the clinical course. Lukas Martinez MD
[2017-09-13] MEDS: Acetylcysteine 20% Inhal Soln (4ml) INH SCH ×2 (11:13→22:15)
[2017-09-13] MEDS: Albuterol-Ipratrop 3 mg / 0.5 (3 ml) UD IH SCH ×4 (11:14→22:15)
--- NOTE | 2017-09-13 17:45 | CP.PCM.PN ---
Subjective - Date & Time of Evaluation Date of Evaluation: 09/13/17 Time of Evaluation: 09:25 - Subjective Subjective: Comfortable, no fevers, not in distress, afebrile. Objective - Vital Signs/Intake and Output Vital Signs (last 24 hours): Temp Pulse Resp BP Pulse Ox 97.4 F L 64 20 110/67 99 09/13/17 12:00 09/13/17 14:00 09/13/17 12:00 09/13/17 12:00 09/13/17 06:00 Intake and Output: 09/13/17 09/13/17 06:59 18:59 Intake Total 390 340 Output Total 0 Balance 390 340 - Medications Medications: Current Medications Acetaminophen (Tylenol 325mg Tab) 650 mg PO Q6H PRN PRN Reason: Pain, Mild (1-3) Last Admin: 09/13/17 16:06 Dose: 650 mg Acetylcysteine (Acetylcysteine 20%) 3 ml INH BIDRESP [facility] Last Admin: 09/13/17 11:13 Dose: 3 ml Albuterol/Ipratropium (Duoneb 3 Mg/0.5 Mg (3 Ml) Ud) 3 ml IH QID [facility] Last Admin: 09/13/17 16:30 Dose: Not Given Aspirin (Ecotrin) 81 mg PO DAILY [facility] Last Admin: 09/13/17 09:51 Dose: 81 mg Atorvastatin Calcium (Lipitor) 10 mg PO DIN [facility] Last Admin: 09/13/17 16:06 Dose: 10 mg Carvedilol (Coreg) 12.5 mg PO BID [facility] Last Admin: 09/13/17 09:55 Dose: 12.5 mg Doxycycline Hyclate (Doryx) 100 mg PO Q12 [facility] PRN Reason: Protocol Stop: 09/19/17 10:01 Last Admin: 09/13/17 09:51 Dose: 100 mg Enoxaparin Sodium (Lovenox) 30 mg SC DAILY [facility] PRN Reason: Protocol Last Admin: 09/13/17 09:51 Dose: 30 mg Furosemide (Lasix) 40 mg IV DAILY [facility] Home Med (Home Med) 1 unit PO DAILY [facility] Last Admin: 09/13/17 09:50 Dose: 1 unit Meropenem (Merrem Iv 1 Gm Premix) 50 mls @ 100 mls/hr IVPB Q12 [facility] PRN Reason: Protocol Last Admin: 09/13/17 09:51 Dose: 100 mls/hr Losartan Potassium (Cozaar) 50 mg PO DAILY [facility] Last Admin: 09/13/17 09:56 Dose: 50 mg Non-Formulary Medication (Aclidinium [place] [Tudorza Pressair]) 400 mcg IH DAILY [facility] Last Admin: 09/13/17 09:50 Dose: 400 mcg Pantoprazole Sodium (Protonix Ec Tab) 40 mg PO DAILY [facility] Last Admin: 09/13/17 09:51 Dose: 40 mg - Labs Labs: PT 14.7 SECONDS (9.4-12.5) H 09/10/17 09:40 INR 1.27 (0.93-1.08) H 09/10/17 09:40 APTT 28.0 Seconds (25.1-36.5) 09/10/17 09:40 - Constitutional Appears: Chronically Ill - Head Exam Head Exam: NORMAL INSPECTION - Respiratory Exam Respiratory Exam: Decreased Breath Sounds - Cardiovascular Exam Cardiovascular Exam: +S1, +S2 - GI/Abdominal Exam GI & Abdominal Exam: Soft. absent: Tenderness Assessment and Plan - Assessment and Plan (Free Text) Plan: Assessment right lower lobe pneumonia as well as UTI with ESBL E. coli CAD S/P CABG with acute on chronic CHF history of Aortic valve replacement HTN Plan Continue Doxycycline and Merrem to complete 4-7 days of therapy (Day 3 today) will monitor clinically
--- NOTE | 2017-09-13 19:01 | PN ---
DATE: REASON FOR CONSULTATION AND FOLLOWUP: Shortness of breath, CHF, respiratory tract infection, pneumonia, history of aortic valve replacement, history of coronary artery bypass surgery, hypertension. SUBJECTIVE: Patient denies any chest pain. Mildly short of breath. Family is at the bedside; grandson is at the bedside. OBJECTIVE: GENERAL: Not in apparent distress. VITAL SIGNS: Temperature afebrile, heart rate 64, blood pressure 110/67. HEENT: PERRLA. Extraocular muscles Intact. NECK: Supple. No carotid bruits. No thyromegaly. CHEST: Clear to auscultation. HEART: S1 and S2, regular. ABDOMEN: Soft. EXTREMITIES: Clubbing and cyanosis negative. LABORATORY DATA: Blood workup as follows: WBC 9.7, hemoglobin 10.8, hematocrit 32.6, platelet count 251. Chemistries show sodium 139, potassium 4.4, chloride 100, carbon dioxide 29, anion gap of 14, BUN 21, and creatinine 1.4. BNP yesterday was 6,900. IMPRESSION: 1. Acute decompensated congestive heart failure. 2. Coronary artery disease, status post bioprosthetic aortic valve replacement. 3. Pneumonia. 4. Cough. 5. Hypertension. 6. History of frequent urinary tract infection. PLAN: Discussed with the family and also with the grandson to give the telephone number of the patient's game bird farmer with [facility], so we can reach him and get more information and to see if any further workup is needed. We will get echo to assess LV function if not done within the last 6 months here because son says that probably it was done last year. We will get an echo to assess LV function. I will repeat chest x-ray also if not done. When the family gives the number, we will try to reach him and reference detailed information. We will follow with you. Thank you, Dr. Lieberman, for providing us the opportunity in taking care of the patient, Kiko Bains. Kirstin Ortega MD
--- NOTE | 2017-09-13 21:34 | CP.PCM.PN ---
Subjective - Date & Time of Evaluation Date of Evaluation: 09/13/17 Time of Evaluation: 21:33 - Subjective Subjective: # 20 angiocath was inserted in left forearm. Dx: Poor venous access. Objective - Vital Signs/Intake and Output Vital Signs (last 24 hours): Temp Pulse Resp BP Pulse Ox 97.4 F L 70 20 114/62 99 09/13/17 12:00 09/13/17 19:19 09/13/17 12:00 09/13/17 19:19 09/13/17 06:00 Intake and Output: 09/13/17 09/14/17 18:59 06:59 Intake Total 340 Balance 340 - Medications Medications: Current Medications Acetaminophen (Tylenol 325mg Tab) 650 mg PO Q6H PRN PRN Reason: Pain, Mild (1-3) Last Admin: 09/13/17 16:06 Dose: 650 mg Acetylcysteine (Acetylcysteine 20%) 3 ml INH BIDRESP [facility] Last Admin: 09/13/17 11:13 Dose: 3 ml Albuterol/Ipratropium (Duoneb 3 Mg/0.5 Mg (3 Ml) Ud) 3 ml IH QID [facility] Last Admin: 09/13/17 16:30 Dose: Not Given Aspirin (Ecotrin) 81 mg PO DAILY [facility] Last Admin: 09/13/17 09:51 Dose: 81 mg Atorvastatin Calcium (Lipitor) 10 mg PO DIN [facility] Last Admin: 09/13/17 16:06 Dose: 10 mg Carvedilol (Coreg) 12.5 mg PO BID [facility] Last Admin: 09/13/17 19:19 Dose: 12.5 mg Doxycycline Hyclate (Doryx) 100 mg PO Q12 [facility] PRN Reason: Protocol Stop: 09/19/17 10:01 Last Admin: 09/13/17 09:51 Dose: 100 mg Enoxaparin Sodium (Lovenox) 30 mg SC DAILY [facility] PRN Reason: Protocol Last Admin: 09/13/17 09:51 Dose: 30 mg Furosemide (Lasix) 40 mg IV DAILY [facility] Home Med (Home Med) 1 unit PO DAILY [facility] Last Admin: 09/13/17 09:50 Dose: 1 unit Meropenem (Merrem Iv 1 Gm Premix) 50 mls @ 100 mls/hr IVPB Q12 [facility] PRN Reason: Protocol Last Admin: 09/13/17 09:51 Dose: 100 mls/hr Losartan Potassium (Cozaar) 50 mg PO DAILY [facility] Last Admin: 09/13/17 09:56 Dose: 50 mg Non-Formulary Medication (Aclidinium [place] [Tudorza Pressair]) 400 mcg IH DAILY [facility] Last Admin: 09/13/17 09:50 Dose: 400 mcg Pantoprazole Sodium (Protonix Ec Tab) 40 mg PO DAILY [facility] Last Admin: 09/13/17 09:51 Dose: 40 mg - Labs Labs: PT 14.7 SECONDS (9.4-12.5) H 09/10/17 09:40 INR 1.27 (0.93-1.08) H 09/10/17 09:40 APTT 28.0 Seconds (25.1-36.5) 09/10/17 09:40
[2017-09-13 22:53] LABS: HEMOGLOBIN 9.7 g/dL (12.0-16.0); MEAN CELL VOLUME 86.7 fl (80.0-105.0); MEAN CORPUSCULAR HEMOGLOBIN 28.1 pg (25.0-35.0); MEAN CORPUSCULAR HGB CONC 32.4 g/dl (31.0-37.0); MEAN PLATELET VOLUME 9.5 fl (7.0-11.0); RBC 3.45 10^6/uL (3.5-6.1); WHITE BLOOD COUNT 8.4 10^3/ul (4.5-11.0)
--- NOTE | 2017-09-13 23:11 | PN ---
DATE: 09/13/2017 PULMONARY PROGRESS NOTE REFERRING PHYSICIAN: Dr. Lieberman. SUBJECTIVE: She is sitting on the side of the bed, feels much better. Decreased cough. Decreased shortness of breath. No nausea. No vomiting or diarrhea. No leg pain or leg swelling. OBJECTIVE: GENERAL: No acute distress. VITAL SIGNS: Temperature is 98, heart rate 64, respiratory rate is 20, blood pressure 110/67, pulse ox 99% on nasal cannula. HEENT: Moist mucous membrane. Crowded airway. Mallampati score is IV. NECK: Supple. No JVD. LUNGS: Has a better airflow. HEART: S1 and S2. ABDOMEN: Soft, nontender. No organomegaly. EXTREMITIES: There is no edema. NEUROLOGIC: Awake and alert. Follows simple commands. MEDICATIONS: She is on Mucomyst 20% inhaled twice a day, Coreg 12.5 mg twice a day, Cozaar 50 mg daily, doxycycline 100 mg twice a day, DuoNeb 4 times a day, Ecotrin 81 mg daily, Lasix 40 mg daily, Lipitor 10 mg daily Lovenox 30 mg subcu daily, meropenem 1 g every 12 hours, Protonix 40 mg daily, Tylenol p.r.n. basis. LABORATORY DATA: Shows no new lab is available since yesterday. Microbiology, urine culture has E-coli. CAT scan of the chest is done today, which shows no evidence of heart failure or pneumonia. IMPRESSION AND PLAN: Resolved right lower lobe pneumonia. Escherichia coli caused urinary tract infection, congestive heart failure, hypertension, coronary artery disease, history of colitis. Pulmonary point of view, doing well. Spoke to the patient's son at bedside. All the questions answered. Pulmonary point of view, she is stable, may need pulmonary function test and sleep study upon discharge as outpatient. Kirstin Bello MD
--- NOTE | 2017-09-14 03:03 | CP.PCM.PN ---
Subjective - Date & Time of Evaluation Date of Evaluation: 09/14/17 Time of Evaluation: 02:51 - Subjective Subjective: Patient was seen at bedside. Has no complaints. Denies chest pain, sob, nausea, sweating. Because she had 8 beats of vtach. BP 94/40 pulse ox 99% on NC. RR 16 HR 60/min Monitor NSR This 87 year old Bangladeshi woman was admitted with abdominal pain, sob, cough, Acute on chronic systolic heart failure,RLL PNA. Has PMH of CHF, CAD, CABG, AVR, GERD,hiatus hernia, ascites , rectal fissure, hemorrhoids, chronic shoulder and knee arthritis. Objective - Vital Signs/Intake and Output Vital Signs (last 24 hours): Temp Pulse Resp BP Pulse Ox 97.4 F L 66 20 98/43 L 98 09/14/17 00:01 09/14/17 02:00 09/14/17 00:01 09/14/17 00:01 09/14/17 00:01 Intake and Output: 09/13/17 09/14/17 18:59 06:59 Intake Total 340 Balance 340 - Medications Medications: Current Medications Acetaminophen (Tylenol 325mg Tab) 650 mg PO Q6H PRN PRN Reason: Pain, Mild (1-3) Last Admin: 09/13/17 16:06 Dose: 650 mg Acetylcysteine (Acetylcysteine 20%) 3 ml INH BIDRESP [facility] Last Admin: 09/13/17 22:15 Dose: 3 ml Albuterol/Ipratropium (Duoneb 3 Mg/0.5 Mg (3 Ml) Ud) 3 ml IH QID [facility] Last Admin: 09/13/17 22:15 Dose: 3 ml Aspirin (Ecotrin) 81 mg PO DAILY [facility] Last Admin: 09/13/17 09:51 Dose: 81 mg Atorvastatin Calcium (Lipitor) 10 mg PO DIN [facility] Last Admin: 09/13/17 16:06 Dose: 10 mg Carvedilol (Coreg) 12.5 mg PO BID [facility] Last Admin: 09/13/17 19:19 Dose: 12.5 mg Doxycycline Hyclate (Doryx) 100 mg PO Q12 [facility] PRN Reason: Protocol Stop: 09/19/17 10:01 Last Admin: 09/13/17 21:47 Dose: 100 mg Enoxaparin Sodium (Lovenox) 30 mg SC DAILY [facility] PRN Reason: Protocol Last Admin: 09/13/17 09:51 Dose: 30 mg Furosemide (Lasix) 40 mg IV DAILY [facility] Home Med (Home Med) 1 unit PO DAILY [facility] Last Admin: 09/13/17 09:50 Dose: 1 unit Meropenem (Merrem Iv 1 Gm Premix) 50 mls @ 100 mls/hr IVPB Q12 [facility] PRN Reason: Protocol Last Admin: 09/13/17 21:47 Dose: 100 mls/hr Losartan Potassium (Cozaar) 50 mg PO DAILY [facility] Last Admin: 09/13/17 09:56 Dose: 50 mg Non-Formulary Medication (Aclidinium [place] [Tudorza Pressair]) 400 mcg IH DAILY [facility] Last Admin: 09/13/17 09:50 Dose: 400 mcg Pantoprazole Sodium (Protonix Ec Tab) 40 mg PO DAILY [facility] Last Admin: 09/13/17 09:51 Dose: 40 mg - Labs Labs: 09/13/17 22:43 PT 14.7 SECONDS (9.4-12.5) H 09/10/17 09:40 INR 1.27 (0.93-1.08) H 09/10/17 09:40 APTT 28.0 Seconds (25.1-36.5) 09/10/17 09:40 Micro Results 09/10/17 09:40 Blood-Venous Blood Culture - Preliminary NO GROWTH AFTER 3 DAYS 09/10/17 09:10 Blood-Venous Blood Culture - Preliminary NO GROWTH AFTER 3 DAYS 09/10/17 10:00 Urine,Clean Catch Urine Culture - Final Escherichia Coli Most Recent Lab Values WBC 7.0 10^3/ul (4.5-11.0) 09/14/17 03:05 RBC 3.31 10^6/uL (3.5-6.1) L 09/14/17 03:05 Hgb 9.3 g/dL (12.0-16.0) L 09/14/17 03:05 Hct 28.5 % (36.0-48.0) L 09/14/17 03:05 MCV 86.1 fl (80.0-105.0) 09/14/17 03:05 MCH 28.1 pg (25.0-35.0) 09/14/17 03:05 MCHC 32.6 g/dl (31.0-37.0) 09/14/17 03:05 RDW 13.9 % (11.5-14.5) 09/14/17 03:05 Plt Count 258 10^3/uL (120.0-450.0) 09/14/17 03:05 MPV 9.6 fl (7.0-11.0) 09/14/17 03:05 Gran % 52.5 % (50.0-68.0) 09/14/17 03:05 Lymph % (Auto) 31.3 % (22.0-35.0) 09/14/17 03:05 [place] % (Auto) 12.3 % (1.0-6.0) H 09/14/17 03:05 Eos % (Auto) 3.6 % (1.5-5.0) 09/14/17 03:05 Baso % (Auto) 0.3 % (0.0-3.0) 09/14/17 03:05 Gran # 3.66 (1.4-6.5) 09/14/17 03:05 Lymph # (Auto) 2.2 (1.2-3.4) 09/14/17 03:05 [place] # (Auto) 0.9 (0.1-0.6) H 09/14/17 03:05 Eos # (Auto) 0.3 (0.0-0.7) 09/14/17 03:05 Baso # (Auto) 0.02 K/mm3 (0.0-2.0) 09/14/17 03:05 PT 14.7 SECONDS (9.4-12.5) H 09/10/17 09:40 INR 1.27 (0.93-1.08) H 09/10/17 09:40 APTT 28.0 Seconds (25.1-36.5) 09/10/17 09:40 Sodium 135 mmol/L (132-148) 09/14/17 03:05 Potassium 3.8 mmol/L (3.6-5.0) 09/14/17 03:05 Chloride 102 mmol/L (98-107) 09/14/17 03:05 Carbon Dioxide 23 mmol/L (21-33) 09/14/17 03:05 Anion Gap 14 (10-20) 09/14/17 03:05 BUN 45 mg/dL (7-21) H 09/14/17 03:05 Creatinine 1.6 mg/dl (0.7-1.2) H 09/14/17 03:05 Est GFR ( Amer) 37 09/14/17 03:05 Est GFR (Non-Af Amer) 31 09/14/17 03:05 Random Glucose 106 mg/dL (70-110) 09/14/17 03:05 Calcium 9.4 mg/dL (8.4-10.5) 09/14/17 03:05 Phosphorus 4.7 mg/dL (2.5-4.5) H 09/14/17 03:05 Magnesium 1.8 mg/dL (1.7-2.2) 09/14/17 03:05 Total Bilirubin 0.5 mg/dL (0.2-1.3) 09/10/17 09:40 AST 22 U/L (14-36) 09/10/17 09:40 ALT 26 U/L (7-56) 09/10/17 09:40 Alkaline Phosphatase 62 U/L (38-126) 09/10/17 09:40 Lactate Dehydrogenase 455 U/L (333-699) 09/10/17 09:40 Total Creatine Kinase 25 U/L (35-230) L 09/10/17 09:40 Troponin I 0.01 ng/mL D 09/14/17 03:05 NT-Pro-B Natriuret Pep 3950 pg/mL (0-450) H 09/14/17 03:05 Total Protein 8.2 g/dL (5.8-8.3) 09/10/17 09:40 Albumin 3.9 g/dL (3.0-4.8) 09/10/17 09:40 Globulin 4.3 gm/dL 09/10/17 09:40 Albumin/Globulin Ratio 0.9 (1.1-1.8) L 09/10/17 09:40 Procalcitonin 0.12 NG/ML (0.19-0.49) L 09/10/17 09:40 Urine Color Yellow (YELLOW) 09/10/17 10:00 Urine Appearance Sl cloudy (CLEAR) 09/10/17 10:00 Urine pH 6.5 (4.7-8.0) 09/10/17 10:00 Ur Specific [place] 1.010 (1.005-1.035) 09/10/17 10:00 Urine Protein 30 mg/dL (<30 mg/dL) H 09/10/17 10:00 Urine Glucose (UA) Negative mg/dL (NEGATIVE) 09/10/17 10:00 Urine Ketones Negative mg/dL (NEGATIVE) 09/10/17 10:00 Urine Blood Moderate (NEGATIVE) H 09/10/17 10:00 Urine Nitrate Negative (NEGATIVE) 09/10/17 10:00 Urine Bilirubin Negative (NEGATIVE) 09/10/17 10:00 Urine Urobilinogen 0.2 E.U./dL (<1 E.U./dL) 09/10/17 10:00 Ur Leukocyte Esterase Large [place]/uL (NEGATIVE) H 09/10/17 10:00 Urine RBC 2 - 5 /hpf (0-2) 09/10/17 10:00 Urine WBC Tntc /hpf (0-6) 09/10/17 10:00 Ur Epithelial Cells 6 - 8 /hpf (0-5) 09/10/17 10:00 Urine Bacteria Small (NEG) 09/10/17 10:00 Urine Other Mucus 09/10/17 10:00 - Constitutional Appears: Well, No Acute Distress - Head Exam Head Exam: ATRAUMATIC, NORMAL INSPECTION, NORMOCEPHALIC - Eye Exam Eye Exam: Normal appearance - ENT Exam ENT Exam: Normal External Ear Exam - Neck Exam Neck Exam: Normal Inspection - Respiratory Exam Respiratory Exam: NORMAL BREATHING PATTERN - Cardiovascular Exam Cardiovascular Exam: absent: JVD - GI/Abdominal Exam GI & Abdominal Exam: absent: Distended - Rectal Exam Rectal Exam: Deferred - Exam Additional comments: Deferred. - Extremities Exam Extremities Exam: Normal Inspection - Back Exam Back Exam: NORMAL INSPECTION - Neurological Exam Neurological Exam: Alert, Awake, Oriented x3 - Psychiatric Exam Psychiatric exam: Normal Affect, Normal Mood - Skin Skin Exam: Normal Color Assessment and Plan - Assessment and Plan (Free Text) Assessment: Non sustained VTACH. Hypotension. Trending down H & H. Elevated BNP. CHF. CAD. CABG. AVR. GERD. Arthritis. Plan: EKG----> NSR, 1*block. CBC,BMP,BNP, Mag, Phos, Trop. Hgb 9.3 Hct 28.5 BUN 45 Cr 1.6 Mag 1.8 BNP 3950 Trop <0.01.
[2017-09-14 03:39] LABS: BASO # 0.02 K/mm3 (0.0-2.0); BASO % 0.3 % (0.0-3.0); EOS # 0.3 (0.0-0.7); EOS % 3.6 % (1.5-5.0); GRAN # 3.66 (1.4-6.5); GRAN % 52.5 % (50.0-68.0); HEMOGLOBIN 9.3 g/dL (12.0-16.0); LYMPH # 2.2 (1.2-3.4); LYMPH % 31.3 % (22.0-35.0); MEAN CELL VOLUME 86.1 fl (80.0-105.0); MEAN CORPUSCULAR HEMOGLOBIN 28.1 pg (25.0-35.0); MEAN CORPUSCULAR HGB CONC 32.6 g/dl (31.0-37.0); MEAN PLATELET VOLUME 9.6 fl (7.0-11.0); MONO # 0.9 (0.1-0.6); MONO % 12.3 % (1.0-6.0); RBC 3.31 10^6/uL (3.5-6.1); RED CELL DISTRIBUTION WIDTH 13.9 % (11.5-14.5)
[2017-09-14 03:56] LABS: CALCIUM 9.4 mg/dL (8.4-10.5)
[2017-09-14 04:01] LABS: TROPONIN I 0.01 ng/mL
--- NOTE | 2017-09-14 06:16 | PN ---
DATE: SUBJECTIVE: This patient was seen and evaluated earlier. Patient's grandson, who is a pediatric neurologist, who was at the bedside at the time of examination. Patient is feeling better, tolerating the diet. PHYSICAL EXAMINATION: VITAL SIGNS: Temperature is 97.4, blood pressure 98/43, respiratory rate , pulse 66. HEENT: Atraumatic and anicteric. NECK: Supple. HEART: S1, S2 heard. LUNGS: Bilateral air entry present. ABDOMEN: Soft, no tenderness. LABORATORY DATA: Hemoglobin 9.7, hematocrit 29.9, WBC is 8.4, platelets 294. IMPRESSION: This 87-year-old patient admitted with pneumonia, shortness of breath, has urinary tract infection and also other cardiac congestive heart failure, history of coronary artery disease. Patient presently tolerating the diet well. Patient had been advised to continue the antibiotics as per Infectious Disease. Continue proton pump inhibitor. Patient also has a small gallstone, appears to be asymptomatic. I did speak with the grandson and with at length. He mentioned to me, patient had a Gastrointestinal workup done before. Patient was advised to get the copies and follow up with primary doctors as needed. Repeat endoscopy can be done as an outpatient. Patient is presently asymptomatic but patient does have anemia. Would request iron studies, B12 and folate for further evaluate and also request for reticulocyte count. The anemia appears to be normocytic anemia. Thank you very much for allowing us to participate in the care of the patient. Lukas Martinez MD
[2017-09-14] MEDS: Acetylcysteine 20% Inhal Soln (4ml) INH SCH (07:39)
[2017-09-14] MEDS: Albuterol-Ipratrop 3 mg / 0.5 (3 ml) UD IH SCH ×4 (07:40→20:02)
[2017-09-14] MEDS: Enoxaparin 30 mg Syringe SC SCH (11:08)
[2017-09-14] MEDS: Meropenem IV 1 gm in NS 50 ML IVPB SCH ×2 (11:09→21:37)
[2017-09-14] MEDS: Pantoprazole 40 mg EC Tab PO SCH (11:11)
[2017-09-14] MEDS: TOLTERODINE 4 MG PO SCH (11:11)
[2017-09-14] MEDS ORDERED: Potassium Chloride 20 mEq ER Tab PO ONE (11:22)
--- NOTE | 2017-09-14 12:31 | CP.PCM.PN ---
Subjective - Date & Time of Evaluation Date of Evaluation: 09/14/17 Time of Evaluation: 10:55 - Subjective Subjective: No fevers, not in distress. Objective - Vital Signs/Intake and Output Vital Signs (last 24 hours): Temp Pulse Resp BP Pulse Ox 98.3 F 60 20 110/57 L 97 09/14/17 06:00 09/14/17 06:00 09/14/17 06:00 09/14/17 06:00 09/14/17 06:00 Intake and Output: 09/14/17 09/14/17 06:59 18:59 Intake Total 170 Balance 170 - Medications Medications: Current Medications Acetaminophen (Tylenol 325mg Tab) 650 mg PO Q6H PRN PRN Reason: Pain, Mild (1-3) Last Admin: 09/13/17 16:06 Dose: 650 mg Acetylcysteine (Acetylcysteine 20%) 3 ml INH BIDRESP [facility] Last Admin: 09/14/17 07:39 Dose: 3 ml Albuterol/Ipratropium (Duoneb 3 Mg/0.5 Mg (3 Ml) Ud) 3 ml IH QID [facility] Last Admin: 09/14/17 07:40 Dose: 3 ml Aspirin (Ecotrin) 81 mg PO DAILY [facility] Last Admin: 09/13/17 09:51 Dose: 81 mg Atorvastatin Calcium (Lipitor) 10 mg PO DIN [facility] Last Admin: 09/13/17 16:06 Dose: 10 mg Carvedilol (Coreg) 12.5 mg PO BID [facility] Last Admin: 09/13/17 19:19 Dose: 12.5 mg Doxycycline Hyclate (Doryx) 100 mg PO Q12 [facility] PRN Reason: Protocol Stop: 09/19/17 10:01 Last Admin: 09/13/17 21:47 Dose: 100 mg Enoxaparin Sodium (Lovenox) 30 mg SC DAILY [facility] PRN Reason: Protocol Last Admin: 09/13/17 09:51 Dose: 30 mg Home Med (Home Med) 1 unit PO DAILY [facility] Last Admin: 09/13/17 09:50 Dose: 1 unit Meropenem (Merrem Iv 1 Gm Premix) 50 mls @ 100 mls/hr IVPB Q12 [facility] PRN Reason: Protocol Last Admin: 09/13/17 21:47 Dose: 100 mls/hr Losartan Potassium (Cozaar) 50 mg PO DAILY [facility] Last Admin: 09/13/17 09:56 Dose: 50 mg Non-Formulary Medication (Aclidinium [place] [Tudorza Pressair]) 400 mcg IH DAILY [facility] Last Admin: 09/13/17 09:50 Dose: 400 mcg Pantoprazole Sodium (Protonix Ec Tab) 40 mg PO DAILY [facility] Last Admin: 09/13/17 09:51 Dose: 40 mg - Labs Labs: 09/14/17 03:05 09/14/17 03:05 PT 14.7 SECONDS (9.4-12.5) H 09/10/17 09:40 INR 1.27 (0.93-1.08) H 09/10/17 09:40 APTT 28.0 Seconds (25.1-36.5) 09/10/17 09:40 - Constitutional Appears: Chronically Ill - Head Exam Head Exam: NORMAL INSPECTION - Respiratory Exam Respiratory Exam: Decreased Breath Sounds - Cardiovascular Exam Cardiovascular Exam: +S1, +S2 - GI/Abdominal Exam GI & Abdominal Exam: Soft. absent: Tenderness Assessment and Plan - Assessment and Plan (Free Text) Plan: Assessment right lower lobe pneumonia as well as UTI with ESBL E. coli, slowly improving CAD S/P CABG with acute on chronic CHF history of Aortic valve replacement HTN Plan Continue Doxycycline and Merrem to complete 4-7 days of therapy (Day 4 today) will continue to monitor clinically
--- NOTE | 2017-09-14 13:29 | PN ---
DATE: 09/13/2017 SUBJECTIVE: The patient is comfortable. No chest pain. Not short of breath. The patient is on IV meropenem for ESBL. Breathing is better. She also had neck discomfort after she slept in wrong position overnight and her neck is a little bit spastic and complained of neck pain. Otherwise, the patient's breathing is comfortable. She feels better. She is afebrile. She is eating. PHYSICAL EXAMINATION On 09/13/2017 as follows: VITAL SIGNS: Temperature is 98.2, heart rate 66, blood pressure 115/61, respirations 19, saturation 98% on room air. HEAD AND NECK: Normal. No JVD. No thyromegaly. CHEST: Clear. Good air entry. CARDIAC: First sound and second sound normal. There is systolic ejection murmur in aortic area. ABDOMEN: Soft and nontender. EXTREMITIES: No edema. NEUROLOGIC: Normal. LABORATORY DATA: Laboratory study as follows, white count 8.4, hemoglobin 9.7, hematocrit 29.9, platelets 294. Chemistry shows procalcitonin is low, 0.12 and her BNP initially was 6900 and troponin was negative. The patient also had laboratory study including CT of the lung, which was negative for infiltrates, pneumonia, . IMPRESSION AND PLAN 1. Congestive heart failure, acute, probably combined systolic and diastolic on top of chronic. The patient is comfortable now, getting Lasix IV. At this time, we will consider repeating labs in the morning, BNP in the morning, and troponin in the morning. We are probably going to hold the Lasix if creatinine starts going up. 2. Urinary tract infection, extended-spectrum beta-lactamase Gram-negative, on meropenem. The patient Infectious Disease recommendation 4 to 7 days, today is day #3. We will continue IV meropenem. We will discuss this with Dr. Holt for the timing of the meropenem. The patient does have a history of recurrent urinary tract infection. 3. Acute renal insufficiency, probably prerenal due to diuretics. 4. History of aortic valve replacement, stable. 5. Hypertension. 6. Hypercholesterolemia. PLAN: Continue current medication. Follow up clinically. Continue Lovenox for DVT prophylaxis, Protonix p.o. for her GI prophylaxis. Continue aspirin, carvedilol, Cozaar 50, doxycycline 100 b.i.d., and meropenem 1 g every 12 hours. The patient is also getting nebulizer treatment and Tylenol p.r.n. Continue current therapy. Follow up clinically. Ryan Lieberman MD
--- NOTE | 2017-09-14 17:19 | PN ---
DATE: REASON FOR CONSULTATION: Shortness of breath, CHF, respiratory tract infection, pneumonia, history of aortic valve replacement, history of coronary artery disease, bypass surgery, hypertension, being followed at [facility]. SUBJECTIVE: The patient denies any chest pain, complained of mild shortness of breath. OBJECTIVE: GENERAL: Not in any apparent distress, lying flat on the bed. VITAL SIGNS: Temperature afebrile, heart rate 60, blood pressure 110/57. HEENT: PERRLA. Extraocular muscles intact. NECK: Supple. No carotid bruit. No thyromegaly. CHEST: Clear to auscultation. HEART: S1 and S2, regular. ABDOMEN: Soft. EXTREMITIES: Clubbing and cyanosis negative. LABORATORY DATA: Blood workup as follows: WBC 7, hemoglobin 9.1, hematocrit 28.5, platelet count 258. Chemistry shows sodium 135, potassium 3.8, chloride 102, carbon dioxide 23, anion gap of 14. BUN 45, creatinine 1.6. BNP 3950. IMPRESSION: Acute decompensated congestive heart failure, possibly secondary to systolic dysfunction, awaiting for echocardiogram, coronary artery disease, status post bioprosthetic aortic valve replacement, status post coronary artery bypass graft, pneumonia, cough, hypertension, obesity, history of frequent urinary tract infection. RECOMMENDATION: Try to reach the patient's bin filler, Dr. Limon , telephone number [phone]. Left a message, awaiting for the callback to get more information. Interim, continue diuretics, continue Coreg, continue losartan, continue aspirin, continue DVT prophylaxis. We will get echo to assess LV function. Awaiting for the more information regarding the patient's congestive heart failure whether systolic or diastolic depending on the echo as well as we will get information from [facility] from Dr. Braxton Gustafson, . We will follow with you. We will also supplement potassium, it is 3.8. Will get extra dose of potassium 40. Though the patient had a chest CT done, she has no evidence of pneumonia, no evidence of congestive heart failure. We will give Lasix. Though this is discontinued because of worsening renal insufficiency, we will start 40 p.o. as the BNP came down from 7000 to 4000. We will follow with you. Repeat the blood workup in the morning. We will give one dose of p.o. Lasix. Though the patient was on IV, it was discontinued. We will give one dose now. Thank you, Dr. Lieberman for providing us the opportunity in taking care of Nara Hoover. Kirstin Ortega MD
--- NOTE | 2017-09-14 19:23 | CARD ---
APPROVED REPORT EKG Measurement Heart [id number] <Conclusion> Sinus rhythm with 1st degree AV block Nonspecific intraventricular block Abnormal ECG
--- NOTE | 2017-09-14 22:02 | PN ---
DATE: 09/14/2017 PULMONARY PROGRESS NOTE REFERRINIG PHYSICIAN: Ryan Lieberman MD SUBJECTIVE: She is sitting up in a chair. Has orthostatic hypotension today. Lasix and blood pressure medicine was on hold. Overall, breathing is better. Decreased cough. No nausea, no vomiting. No diarrhea. No leg pain or leg swelling. OBJECTIVE: GENERAL: In on acute distress. VITAL SIGNS: Temperature is 98, heart rate 66, respiratory rate is 18, blood pressure is 104/68 while sitting up, pulse ox is 95% on room air. HEENT: Moist mucous membrane. No ulcer or thrush. NECK: Supple. No JVD. LUNGS: Have a fair airflow with rhonchi. HEART: S1, S2. ABDOMEN: Soft, nontender. No organomegaly. EXTREMITIES: There is no edema. NEUROLOGIC: Awake, alert, follows simple command. MEDICATIONS: She is on Mucomyst inhaled twice a day, Tudorza inhaler daily, Coreg 12.5 mg twice a day, Cozaar 50 mg daily, doxycycline 100 mg twice a day, DuoNeb every 6 hour, Ecotrin 81 mg daily, Lasix 40 mg daily, Lipitor 10 mg daily Lovenox 30 mg subcu daily, meropenem 1 g twice a day, Protonix 40 mg daily, Tylenol p.r.n. basis. LABORATORY DATA: Shows hemoglobin 9.3, hematocrit 28.5, WBC 7, platelet is 258. Sodium 135, potassium 3.8, chloride 102, bicarbonate 23, BUN 45, creatinine 1.6, glucose is 106, calcium 9.4, phosphorus 4.7, magnesium 1.8. Troponin 0.03. ProBNP was of 3950, procalcitonin 0.12. Microbiology: Urine culture has E. coli. Blood culture is negative. Had echocardiogram done, report is pending. IMPRESSION AND PLAN: Resolved right lower lobe pneumonia, Escherichia coli urinary tract infection, history of congestive heart failure, hypertension, coronary artery disease, colitis, orthostatic hypotension. Pulmonary point of view, she is doing well. Continue antibiotics as per Infectious Diseases. Discontinue Mucomyst. Continue inhaled bronchodilator. Need to readjust blood pressure medications. Fall precaution. Spoke to nursing staff, also spoke to family at bedside. All the questions answered. Thank you and we will follow with you. Kirstin Bello MD [facility] # [id number]
[2017-09-15] MEDS: Albuterol-Ipratrop 3 mg / 0.5 (3 ml) UD IH SCH ×4 (05:42→20:04)
[2017-09-15] MEDS: Enoxaparin 30 mg Syringe SC SCH (09:41)
[2017-09-15] MEDS: Pantoprazole 40 mg EC Tab PO SCH (09:42)
[2017-09-15] MEDS: TOLTERODINE 4 MG PO SCH (09:42)
[2017-09-15] MEDS: Meropenem IV 1 gm in NS 50 ML IVPB SCH ×2 (09:43→21:02)
--- NOTE | 2017-09-15 09:57 | CARD ---
APPROVED REPORT EXAM: Two-dimensional and M-mode echocardiogram with Doppler and color Doppler. INDICATION Congestive Heart Failure S/P AVR 2D DIMENSIONS Left Atrium (2D)5.0 (1.6-4.0cm)IVSd0.9 (0.7-1.1cm) LVDd4.2 (3.9-5.9cm)PWd1.1 (0.7-1.1cm) LVDs3.1 (2.5-4.0cm)FS (%) 25.8 % LVEF (%)51.1 (>50%) M-Mode DIMENSIONS Aortic Root3.00 (2.2-3.7cm) Aortic Valve AoV Peak Jxsjfnyy723.0cm/sAoV VTI85.1cmAO Peak GR.50mmHg LVOT Peak Qcevknhv692.0cm/sLVOT VTI21.90cmAO Mean GR.28mmHg Mitral Valve MV E Nqtikyap293.0cm/sMV A Kfzffljz52.8cm/sE/A ratio1.7 TDI Lateral E' Peak V9.75cm/sMedial E' Peak V4.29cm/sE/Lateral E'15.1 E/Medial E'34.3 Pulmonary Valve PV Peak Otlffdgj580.0cm/sPV Peak Grad.4mmHg Tricuspid Valve TR Peak Jzkmdbsr021wj/sRAP IOZHRLMG11ivMaNI Peak Gr.56mmHg QSGB53cgAa LEFT VENTRICLE The left ventricle is normal size. There is normal left ventricular wall thickness. Left ventricle systolic function is low normal.[id number] There is mild hypokinesis in the apical anterior wall. Septal motion consistent with conduction abnormality. Transmitral Doppler flow pattern is Grade III-reversible restrictive diastolic dysfunction. The left atrial pressure is mildly elevated. No left ventricle thrombus noted on this study. There is no ventricular septal defect visualized. There is no left ventricular aneurysm. There is no mass noted in the left ventricle. RIGHT VENTRICLE The right ventricle is normal size. There is normal right ventricular wall thickness. The right ventricular systolic function is normal. ATRIA The left atrium is moderately dilated. The right atrium is borderline dilated. The interatrial septum is intact with no evidence for an atrial septal defect. AORTIC VALVE There is trace aortic regurgitation. There are no vegetations present on this prosthetic aortic valve. There is a bioprosthetic aortic valve prosthesis. The prosthetic aortic valve appears normal. MITRAL VALVE The mitral valve is thickened but opens well. Mitral annular calcification is moderate. Mitral regurgitation is moderate to severe. There is no mitral valve stenosis. There is no evidence of mitral valve prolapse. TRICUSPID VALVE The tricuspid valve leaflets are thickened , but open well. There is moderate to severe tricuspid regurgitation.RVSP-66 mmof hg There is moderate pulmonary hypertension. There is no tricuspid valve stenosis. There is no tricuspid valve prolapse or vegetation. PULMONIC VALVE The pulmonary valve is normal in structure. There is mild pulmonic valvular regurgitation. There is no pulmonic valvular stenosis. GREAT VESSELS The aortic root is normal in size. The ascending aorta is normal in size. The pulmonary artery is normal. The IVC is normal in size and collapses >50% with inspiration. PERICARDIAL EFFUSION There is no pleural effusion. There is no pericardial effusion. <Conclusion> The left ventricle is normal size. There is normal left ventricular wall thickness. Left ventricle systolic function is low normal.[id number] There are no vegetations present on this prosthetic aortic valve. There is a bioprosthetic aortic valve prosthesis. The prosthetic aortic valve appears normal. There is trace aortic regurgitation. Mitral regurgitation is moderate to severe. There is moderate to severe tricuspid regurgitation.RVSP-66 mmof hg There is moderate pulmonary hypertension. There is mild pulmonic valvular regurgitation. The IVC is normal in size and collapses >50% with inspiration. There is no pericardial effusion. Transmitral Doppler flow pattern is Grade III-reversible restrictive diastolic dysfunction. The left atrial pressure is mildly elevated.
[2017-09-15 11:07] LABS: BLOOD UREA NITROGEN 34 mg/dL (7-21); CALCIUM 9.8 mg/dL (8.4-10.5); GFR AFRICAN-AMERICAN > 60; GFR NON-AFRICAN AMERICAN 53
--- NOTE | 2017-09-15 12:41 | CP.PCM.PN ---
<Muna Mina - Last Filed: 09/15/17 12:41> Subjective - Date & Time of Evaluation Date of Evaluation: 09/15/17 Time of Evaluation: 10:45 - Subjective Subjective: Seen and examined at the bedside earlier today, chart reviewed. Patient speak Nepali, pay clerk at bedside. Patient denies nausea, vomiting, or abdominal pain. As per nursing patient had 2 BMs morning only positive diarrhea or any bleeding. Objective - Vital Signs/Intake and Output Vital Signs (last 24 hours): Temp Pulse Resp BP Pulse Ox 97.8 F 72 19 149/74 97 09/15/17 06:00 09/15/17 10:00 09/15/17 06:00 09/15/17 09:41 09/15/17 06:00 Intake and Output: 09/15/17 09/15/17 06:59 18:59 Intake Total 1010 Balance 1010 - Medications Medications: Current Medications Acetaminophen (Tylenol 325mg Tab) 650 mg PO Q6H PRN PRN Reason: Pain, Mild (1-3) Last Admin: 09/15/17 05:17 Dose: 650 mg Albuterol/Ipratropium (Duoneb 3 Mg/0.5 Mg (3 Ml) Ud) 3 ml IH QID [facility] Last Admin: 09/15/17 09:30 Dose: Not Given Aspirin (Ecotrin) 81 mg PO DAILY [facility] Last Admin: 09/15/17 09:41 Dose: 81 mg Atorvastatin Calcium (Lipitor) 10 mg PO DIN [facility] Last Admin: 09/14/17 16:58 Dose: 10 mg Carvedilol (Coreg) 12.5 mg PO BID [facility] Last Admin: 09/15/17 09:41 Dose: 12.5 mg Doxycycline Hyclate (Doryx) 100 mg PO Q12 [facility] PRN Reason: Protocol Stop: 09/19/17 10:01 Last Admin: 09/15/17 09:42 Dose: 100 mg Enoxaparin Sodium (Lovenox) 30 mg SC DAILY [facility] PRN Reason: Protocol Last Admin: 09/15/17 09:41 Dose: 30 mg Home Med (Home Med) 1 unit PO DAILY [facility] Last Admin: 09/15/17 09:42 Dose: 1 unit Meropenem (Merrem Iv 1 Gm Premix) 50 mls @ 100 mls/hr IVPB Q12 [facility] PRN Reason: Protocol Last Admin: 09/15/17 09:43 Dose: 100 mls/hr Losartan Potassium (Cozaar) 50 mg PO DAILY [facility] Last Admin: 09/15/17 09:42 Dose: 50 mg Non-Formulary Medication (Aclidinium [place] [Tudorza Pressair]) 400 mcg IH DAILY [facility] Last Admin: 09/15/17 12:15 Dose: Not Given Pantoprazole Sodium (Protonix Ec Tab) 40 mg PO DAILY [facility] Last Admin: 09/15/17 09:42 Dose: 40 mg - Labs Labs: 09/14/17 03:05 09/15/17 10:30 PT 14.7 SECONDS (9.4-12.5) H 09/10/17 09:40 INR 1.27 (0.93-1.08) H 09/10/17 09:40 APTT 28.0 Seconds (25.1-36.5) 09/10/17 09:40 - Constitutional Appears: No Acute Distress - Head Exam Head Exam: NORMOCEPHALIC - Eye Exam Eye Exam: Normal appearance. absent: Scleral icterus - ENT Exam ENT Exam: Mucous Membranes Moist - Neck Exam Neck Exam: Normal Inspection - Respiratory Exam Respiratory Exam: NORMAL BREATHING PATTERN. absent: Respiratory Distress - Cardiovascular Exam Cardiovascular Exam: +S1, +S2 - GI/Abdominal Exam GI & Abdominal Exam: Soft, Normal Bowel Sounds. absent: Guarding, Tenderness, Rebound - Extremities Exam Extremities Exam: absent: Calf Tenderness - Neurological Exam Neurological Exam: Alert, Awake, Oriented x3 - Skin Skin Exam: Dry, Warm Assessment and Plan - Assessment and Plan (Free Text) Assessment: ASSESSMENT: Resolved abdominal pain Pneumonia UTI Gallstones CHF Coronary artery disease Plan: Continue PPI Diet as tolerated monitor LFTs On IV antibiotics and oral antibiotics Seen and discussed w/ Dr. Martinez. <Lukas Martinez V - Last Filed: 09/15/17 23:17> Objective - Vital Signs/Intake and Output Vital Signs (last 24 hours): Temp Pulse Resp BP Pulse Ox 98.9 F 78 20 151/69 H 97 09/15/17 18:00 09/15/17 18:00 09/15/17 18:00 09/15/17 18:00 09/15/17 06:00 Intake and Output: 09/15/17 09/16/17 18:59 06:59 Intake Total 360 Balance 360 - Medications Medications: Current Medications Acetaminophen (Tylenol 325mg Tab) 650 mg PO Q6H PRN PRN Reason: Pain, Mild (1-3) Last Admin: 09/15/17 05:17 Dose: 650 mg Albuterol/Ipratropium (Duoneb 3 Mg/0.5 Mg (3 Ml) Ud) 3 ml IH QID [facility] Last Admin: 09/15/17 20:04 Dose: 3 ml Aspirin (Ecotrin) 81 mg PO DAILY [facility] Last Admin: 09/15/17 09:41 Dose: 81 mg Atorvastatin Calcium (Lipitor) 10 mg PO DIN [facility] Last Admin: 09/15/17 17:21 Dose: 10 mg Carvedilol (Coreg) 12.5 mg PO BID [facility] Last Admin: 09/15/17 17:21 Dose: 12.5 mg Doxycycline Hyclate (Doryx) 100 mg PO Q12 [facility] PRN Reason: Protocol Stop: 09/19/17 10:01 Last Admin: 09/15/17 21:02 Dose: 100 mg Enoxaparin Sodium (Lovenox) 30 mg SC DAILY [facility] PRN Reason: Protocol Last Admin: 09/15/17 09:41 Dose: 30 mg Furosemide (Lasix) 20 mg IVP DAILY [facility] Last Admin: 09/15/17 14:07 Dose: 20 mg Home Med (Home Med) 1 unit PO DAILY [facility] Last Admin: 09/15/17 09:42 Dose: 1 unit Meropenem (Merrem Iv 1 Gm Premix) 50 mls @ 100 mls/hr IVPB Q12 [facility] PRN Reason: Protocol Last Admin: 09/15/17 21:02 Dose: 100 mls/hr Losartan Potassium (Cozaar) 50 mg PO DAILY [facility] Last Admin: 09/15/17 09:42 Dose: 50 mg Non-Formulary Medication (Aclidinium [place] [Tudorza Pressair]) 400 mcg IH DAILY [facility] Last Admin: 09/15/17 12:15 Dose: Not Given Pantoprazole Sodium (Protonix Ec Tab) 40 mg PO DAILY [facility] Last Admin: 09/15/17 09:42 Dose: 40 mg Potassium Chloride (Klor-Con 10) 10 meq PO BRK [facility] Last Admin: 09/15/17 14:07 Dose: 10 meq - Labs Labs: 09/14/17 03:05 04/04/18 10:30 PT 14.7 SECONDS (9.4-12.5) H 09/10/17 09:40 INR 1.27 (0.93-1.08) H 09/10/17 09:40 APTT 28.0 Seconds (25.1-36.5) 09/10/17 09:40 Attending/Attestation - Attestation I have personally seen and examined this patient.: Yes I have fully participated in the care of the patient.: Yes I have reviewed all pertinent clinical information, including history, physical exam and plan: Yes Notes (Text): This is an addendum to GI progress report dictated by Muna Mina APN.The patient was seen and examined earlier. Medical records, lab studies, imagings were reviewed. Last 24 hours events reviewed. Agreed with the above treatment plan as outlined in Muna Mina APN's notes the with the addition of the following Tolerating the diet Denies any abdominal gail Antibiotics as per ID Follow up of the hemoglobin 09/15/17 23:17
[2017-09-15] MEDS: Potassium Chloride 10 mEq ER Tab PO SCH (14:07)
--- NOTE | 2017-09-15 14:42 | CP.PCM.PN ---
Subjective - Date & Time of Evaluation Date of Evaluation: 09/15/17 Time of Evaluation: 10:15 - Subjective Subjective: Comfortable, no fevers. Objective - Vital Signs/Intake and Output Vital Signs (last 24 hours): Temp Pulse Resp BP Pulse Ox 97.8 F 65 19 132/65 97 09/15/17 06:00 09/15/17 04:59 09/15/17 06:00 09/15/17 06:00 09/15/17 06:00 Intake and Output: 09/15/17 09/15/17 06:59 18:59 Intake Total 1010 Balance 1010 - Medications Medications: Current Medications Acetaminophen (Tylenol 325mg Tab) 650 mg PO Q6H PRN PRN Reason: Pain, Mild (1-3) Last Admin: 09/15/17 05:17 Dose: 650 mg Albuterol/Ipratropium (Duoneb 3 Mg/0.5 Mg (3 Ml) Ud) 3 ml IH QID [facility] Last Admin: 09/15/17 05:42 Dose: Not Given Aspirin (Ecotrin) 81 mg PO DAILY [facility] Last Admin: 09/14/17 11:10 Dose: 81 mg Atorvastatin Calcium (Lipitor) 10 mg PO DIN [facility] Last Admin: 09/14/17 16:58 Dose: 10 mg Carvedilol (Coreg) 12.5 mg PO BID [facility] Last Admin: 09/14/17 16:59 Dose: Not Given Doxycycline Hyclate (Doryx) 100 mg PO Q12 [facility] PRN Reason: Protocol Stop: 09/19/17 10:01 Last Admin: 09/14/17 21:38 Dose: 100 mg Enoxaparin Sodium (Lovenox) 30 mg SC DAILY [facility] PRN Reason: Protocol Last Admin: 09/14/17 11:08 Dose: 30 mg Home Med (Home Med) 1 unit PO DAILY [facility] Last Admin: 09/14/17 11:11 Dose: 1 unit Meropenem (Merrem Iv 1 Gm Premix) 50 mls @ 100 mls/hr IVPB Q12 [facility] PRN Reason: Protocol Last Admin: 09/14/17 21:37 Dose: 100 mls/hr Losartan Potassium (Cozaar) 50 mg PO DAILY [facility] Last Admin: 09/14/17 12:45 Dose: 50 mg Non-Formulary Medication (Aclidinium [place] [Tudorza Pressair]) 400 mcg IH DAILY [facility] Last Admin: 09/14/17 12:46 Dose: Not Given Pantoprazole Sodium (Protonix Ec Tab) 40 mg PO DAILY [facility] Last Admin: 09/14/17 11:11 Dose: 40 mg - Labs Labs: 09/14/17 03:05 09/14/17 03:05 PT 14.7 SECONDS (9.4-12.5) H 09/10/17 09:40 INR 1.27 (0.93-1.08) H 09/10/17 09:40 APTT 28.0 Seconds (25.1-36.5) 09/10/17 09:40 - Constitutional Appears: Chronically Ill - Head Exam Head Exam: NORMAL INSPECTION - Respiratory Exam Respiratory Exam: Decreased Breath Sounds - Cardiovascular Exam Cardiovascular Exam: +S1, +S2 - GI/Abdominal Exam GI & Abdominal Exam: Soft. absent: Tenderness Assessment and Plan - Assessment and Plan (Free Text) Plan: Assessment right lower lobe pneumonia as well as UTI with ESBL E. coli, slowly improving CAD S/P CABG with acute on chronic CHF history of Aortic valve replacement HTN Plan Continue Doxycycline and Merrem to complete 4-7 days of therapy (Day 5 today) will continue to follow clinically
--- NOTE | 2017-09-15 14:55 | PN ---
DATE: 09/15/2017 REASON FOR CONSULTATION: Followup shortness of breath, CHF, respiratory tract infection, pneumonia, history of aortic valve replacement, history of coronary artery disease, history of coronary artery bypass surgery, hypertension, being followed at [facility]. SUBJECTIVE: The patient denies any chest pain, shortness of breath, any palpitation, but complaining of both neck side pain and tenderness. OBJECTIVE: GENERAL: Not in any apparent distress, but on palpation, feels neck pain. VITAL SIGNS: Temperature afebrile, heart rate 65, blood pressure 132/65. HEENT: PERRLA. Extraocular muscles intact. NECK: Supple. No carotid bruit or thyromegaly. CHEST: Clear to auscultation. HEART: S1 and S2 regular. ABDOMEN: Soft. EXTREMITIES: Clubbing and cyanosis negative. LABORATORY DATA: Blood workup as follows: WBC 7, hemoglobin , hematocrit 28.5, platelet count 258. Chemistry shows sodium 135, potassium 3.8, chloride 102, carbon dioxide 23, anion gap of 14, BUN 45, creatinine 1.6. BNP 3950. IMPRESSION: Acute decompensated congestive heart failure, acute on chronic, probably secondary to systolic dysfunction; history of aortic valve replacement; history of coronary artery bypass surgery. Being followed at [facility]. History of pneumonia, urinary tract infection. The patient is being followed at [facility]. Yesterday, left the message to Dr. Braxton Gustafson, telephone number [phone]. Awaiting for the call back to get more information. The patient will get echocardiography. We will review the echo today to see the left ventricular systolic function. In the interim, continue , continue Coreg, continue losartan, continue deep venous thrombosis prophylaxis. Give one dose of Motrin for pain in the neck and Lasix was changed to p.o. We will repeat SMA-7 today and CBC. Lasix changed to p.o. and we will discontinue IV Lasix. We will repeat chest x-ray PA and lateral today. Thank you, Dr. Lieberman, for providing us the opportunity in taking care of the patient, Nara Hoover. Kirstin Ortega MD
--- NOTE | 2017-09-15 15:31 | PN ---
DATE: 09/15/2017 REFERRING PHYSICIAN: Ryan Lieberman M.D. SUBJECTIVE: The patient is out of bed to chair. Night was unremarkable. Feels better today. No orthostatic hypotension. Cough is better. No nausea, no vomiting, no diarrhea. No leg pain or leg swelling. OBJECTIVE: GENERAL: In no acute distress. VITAL SIGNS: Temperature is 98, heart rate 70, respiratory rate is 20, blood pressure 129/69, pulse ox is 94% on room air. HEENT: Moist mucous membranes. No ulcer or thrush. NECK: Supple. No JVD. LUNGS: Have fair airflow with rhonchi. HEART: S1 and S2. ABDOMEN: Soft, nontender. No organomegaly. EXTREMITIES: No edema. NEUROLOGICAL: Awake and alert. Follows simple command. MEDICATIONS: She is on Coreg 12.5 mg twice a day, Cozaar 50 mg daily, doxycycline 100 mg twice a day, DuoNeb q.i.d., Ecotrin 81 mg daily, potassium 10 mEq daily, Lasix 20 mg daily, Lipitor 10 mg daily, Lovenox 30 mg subcu daily, meropenem 1 g IV q.12 hours, Protonix 40 mg daily, Tylenol p.r.n. basis. LABORATORY DATA: Reviewed and noted. Sodium 139, potassium 4.3, chloride 108, bicarbonate 20, BUN 34, creatinine 1, glucose 125, calcium 9.8. Urine culture has E. coli. IMPRESSION AND PLAN: Status post pneumonia, has Escherichia coli caused urinary tract infection, congestive heart failure, hypertension, coronary artery disease, colitis, orthostatic hypotension. Pulmonary point of view, she is doing well. Spoke to family at bedside. Continue bronchodilator as needed. Aspiration precaution. Fall precaution. Antibiotics as per Infectious Diseases. Only use supplemental oxygen, if pulse ox below 92%. Thank you and we will follow with you. Kirstin Bello MD
--- NOTE | 2017-09-15 16:39 | RAD ---
HISTORY: F/U pneumonia and compare COMPARISON: Chest radiographs 09/10/2017 TECHNIQUE: Chest PA and lateral FINDINGS: LUNGS: Restrained motion degrades the lateral view. No acute infiltrate is identified bilaterally. Pulmonary vascular pattern appears nearly normal with limited pulmonary venous congestion remaining. PLEURA: No significant pleural effusion identified. No pneumothorax apparent. CARDIOVASCULAR: Cardiomegaly reiterated as well as signs of prostatic cardiac valve replacement. OSSEOUS STRUCTURES: Sternotomy wires reiterated. VISUALIZED UPPER ABDOMEN: Normal. OTHER FINDINGS: None. IMPRESSION: Nearly normalized pulmonary venous congestion. No definitive infiltrate bilaterally.
--- NOTE | 2017-09-16 00:05 | PN ---
DATE: 09/14/2017 SUBJECTIVE: The patient clinically better, comfortable. Her neck pain is better. She has no chest pain. Not short of breath and afebrile. She is still on the IV meropenem. PHYSICAL EXAMINATION: VITAL SIGNS: Her vital signs are as follow; temperature 97.2, heart rate 63, blood pressure 125/50, respirations 18, saturations 98%. HEAD AND NECK: Normal. No JVD. No thyromegaly. CHEST: Clear. Good air entry. CARDIAC: First sound and second sound normal. Systolic murmur in aortic area. ABDOMEN: Soft, nontender. EXTREMITIES: No edema. NEUROLOGIC: Normal. LABORATORY STUDY: Shows white count 7, hemoglobin 9.3, hematocrit 28.5, platelets 258. Sodium 135, potassium 3.8, chloride 102, bicarb 23, BUN 45, creatinine 1.6, blood sugar 106. Calcium is 9.4, phosphorus is a little bit high 4.7, magnesium 1.8, BNP is 3950. Troponin is negative. IMPRESSION: 1. Urinary tract infections, extended-spectrum beta-lactamase. Continue IV meropenem. 2. Congestive heart failure. The patient does have coronary artery disease, aortic stenosis, pulmonary hypertension, mitral regurgitation and with high right ventricular pressure. Continue Lasix. I will follow up clinically. 3. Renal insufficiency. We will repeat lab in the morning. We will consider Renal consults. 4. Pneumonia, resolved. Recent CT was negative. 5. Hypertension, hypercholesterolemia, acid reflux. PLAN: Continue current therapy. Ryan Lieberman MD
--- NOTE | 2017-09-16 00:09 | PN ---
DATE: 09/15/2017 SUBJECTIVE: The patient is comfortable. No respiratory distress. Complained of neck pain. Seems better now. Not short of breath. No fever. No nausea. No vomiting. PHYSICAL EXAMINATION: VITAL SIGNS: Vitals are as follow; temperature 97.8, heart rate 76, blood pressure 132/65, respirations 19, saturations 97% on room air. HEAD AND NECK: Normal. No JVD. No thyromegaly. CHEST: Clear. Good air entry. CARDIAC: First sound and second sound normal. Systolic ejection murmur, aortic area. ABDOMEN: Soft, nontender. EXTREMITIES: No edema. NEUROLOGIC: Normal. LABORATORY STUDY: Shows sodium 139, potassium 4.3, chloride 108, bicarb 20, BUN 34, creatinine 1, blood sugar 125 and calcium 9.8. IMPRESSION AND PLAN: 1. Acute congestive heart failure secondary to valvular mitral valve dysfunction with moderate to severe mitral regurgitation, pulmonary hypertension, severe tricuspid regurgitation. The patient will be continued on current medications. Continue Lasix. Follow up clinically. 2. Community-acquired pneumonia, resolved. 3. Urinary tract infection. Escherichia coli extended-spectrum beta-lactamase. Continue IV meropenem. Discussed with the family and we will discontinue the meropenem in the morning. I will discharge the patient in the morning. 4. Chronic anemia. 5. Coronary artery disease, hypertension, hypercholesterolemia. 6. Acid reflux symptoms, iron-deficiency anemia. PLAN: Continue current therapy. Ryan Lieberman MD
[2017-09-16 07:24] VITALS: O2SAT 97
[2017-09-16] MEDS: Albuterol-Ipratrop 3 mg / 0.5 (3 ml) UD IH SCH ×5 (08:24→21:32)
[2017-09-16] MEDS: Pantoprazole 40 mg EC Tab PO SCH (09:23)
[2017-09-16] MEDS: Potassium Chloride 10 mEq ER Tab PO SCH (09:23)
[2017-09-16] MEDS: Meropenem IV 1 gm in NS 50 ML IVPB SCH ×2 (09:24→21:31)
[2017-09-16] MEDS: Enoxaparin 30 mg Syringe SC SCH (09:24)
[2017-09-16] MEDS: TOLTERODINE 4 MG PO SCH (09:27)
--- NOTE | 2017-09-16 12:13 | CP.PCM.PN ---
Subjective - Date & Time of Evaluation Date of Evaluation: 09/16/17 Time of Evaluation: 09:05 - Subjective Subjective: Comfortable in bed, no fevers, not in distress. Objective - Vital Signs/Intake and Output Vital Signs (last 24 hours): Temp Pulse Resp BP Pulse Ox 98 F 72 17 96/55 L 97 09/16/17 12:00 09/16/17 12:00 09/16/17 12:00 09/16/17 12:00 09/16/17 05:26 Intake and Output: 09/16/17 09/16/17 06:59 18:59 Intake Total 580 Output Total 0 Balance 580 - Medications Medications: Current Medications Acetaminophen (Tylenol 325mg Tab) 650 mg PO Q6H PRN PRN Reason: Pain, Mild (1-3) Last Admin: 09/16/17 02:32 Dose: 650 mg Albuterol/Ipratropium (Duoneb 3 Mg/0.5 Mg (3 Ml) Ud) 3 ml IH QID [facility] Last Admin: 09/16/17 11:24 Dose: Not Given Aspirin (Ecotrin) 81 mg PO DAILY [facility] Last Admin: 09/16/17 09:22 Dose: 81 mg Atorvastatin Calcium (Lipitor) 10 mg PO DIN [facility] Last Admin: 09/15/17 17:21 Dose: 10 mg Carvedilol (Coreg) 12.5 mg PO BID [facility] Last Admin: 09/16/17 09:23 Dose: 12.5 mg Doxycycline Hyclate (Doryx) 100 mg PO Q12 [facility] PRN Reason: Protocol Stop: 09/19/17 10:01 Last Admin: 09/16/17 09:22 Dose: 100 mg Enoxaparin Sodium (Lovenox) 30 mg SC DAILY [facility] PRN Reason: Protocol Last Admin: 09/16/17 09:24 Dose: 30 mg Furosemide (Lasix) 20 mg IVP DAILY [facility] Last Admin: 09/16/17 09:23 Dose: 20 mg Home Med (Home Med) 1 unit PO DAILY [facility] Last Admin: 09/16/17 09:27 Dose: 1 unit Meropenem (Merrem Iv 1 Gm Premix) 50 mls @ 100 mls/hr IVPB Q12 [facility] PRN Reason: Protocol Last Admin: 09/16/17 09:24 Dose: 100 mls/hr Losartan Potassium (Cozaar) 50 mg PO DAILY [facility] Last Admin: 09/16/17 09:22 Dose: 50 mg Non-Formulary Medication (Aclidinium [place] [Tudorza Pressair]) 400 mcg IH DAILY [facility] Last Admin: 09/15/17 12:15 Dose: Not Given Pantoprazole Sodium (Protonix Ec Tab) 40 mg PO DAILY [facility] Last Admin: 09/16/17 09:23 Dose: 40 mg Potassium Chloride (Klor-Con 10) 10 meq PO BRK [facility] Last Admin: 09/16/17 09:23 Dose: 10 meq - Labs Labs: 09/14/17 03:05 09/15/17 10:30 PT 14.7 SECONDS (9.4-12.5) H 09/10/17 09:40 INR 1.27 (0.93-1.08) H 09/10/17 09:40 APTT 28.0 Seconds (25.1-36.5) 09/10/17 09:40 - Constitutional Appears: Chronically Ill - Head Exam Head Exam: NORMAL INSPECTION - ENT Exam ENT Exam: Mucous Membranes Moist - Neck Exam Neck Exam: absent: Meningismus - Respiratory Exam Respiratory Exam: Decreased Breath Sounds - Cardiovascular Exam Cardiovascular Exam: +S1, +S2 - GI/Abdominal Exam GI & Abdominal Exam: Soft. absent: Tenderness Assessment and Plan - Assessment and Plan (Free Text) Plan: Assessment right lower lobe pneumonia as well as UTI with ESBL E. coli, slowly improving CAD S/P CABG with acute on chronic CHF history of Aortic valve replacement HTN Plan Continue Doxycycline and Merrem to complete 4-7 days of therapy (Day 6 today) will continue to follow clinically
--- NOTE | 2017-09-16 13:13 | PN ---
DATE: 09/16/2017 PULMONARY PROGRESS NOTE REFERRING PHYSICIAN: Ryan Lieberman MD. SUBJECTIVE: She is lying in the bed. Night was unremarkable. No headache. No rhinitis. Nausea. No vomiting. No diarrhea, leg pain, leg swelling. OBJECTIVE: GENERAL: In no acute distress. VITAL SIGNS: Temperature is 98, heart rate is 80, respiratory rate is 18, blood pressure 156/77, pulse ox 97% on room air. HEENT: Moist mucous membrane. Crowded airway. NECK: Supple. No JVD. LUNGS: Have a fair airflow with rhonchi. HEART: S1 and S2. ABDOMEN: Soft, nontender. No organomegaly. EXTREMITIES: No edema. NEUROLOGIC: Awake and alert. Follows simple command. MEDICATIONS: She is on Tudorza 1 spray twice a day, Coreg 12.5 mg twice a day, Cozaar 50 mg daily, doxycycline 100 mg twice a day, DuoNeb four times daily, Ecotrin 81 mg daily, insulin coverage, potassium 10 mEq daily, Lasix 20 mg daily, Lipitor 10 mg daily, Lovenox 30 mg subcu daily, meropenem 1 g IV every 12 hours, Protonix 40 mg daily, Tylenol p.r.n. basis. LABORATORY DATA: Shows that no new lab is available since yesterday. Microbiology data shows urine culture has E coli, which is ESBL. Chest x-ray done yesterday shows no new infiltrate or effusion. IMPRESSION AND PLAN: Status post pneumonia, presently has extended-spectrum beta-lactamase Escherichia coli urinary tract infection, congestive heart failure, hypertension, coronary artery disease, episode of orthostatic hypotension 2 days ago. Pulmonary point of view, she is doing well. Keep head at 45 degrees. Aspiration precaution. Continue antibiotics. Gastric prophylaxis. Sequential compression device to lower extremity. Out of bed to chair. Fall precaution. Thank you and we will follow with you. Kirstin Bello MD
--- NOTE | 2017-09-16 16:40 | CP.PCM.PN ---
Subjective - Date & Time of Evaluation Date of Evaluation: 09/16/17 Time of Evaluation: 10:50 - Subjective Subjective: Seen and examined at the bedside earlier today, chart review. Patient complaining of Epigastric discomfort, no nausea or vomiting. Spoke to nursing staff patient ate all of her breakfast, prior to this complaint. Objective - Vital Signs/Intake and Output Vital Signs (last 24 hours): Temp Pulse Resp BP Pulse Ox 98 F 72 17 96/55 L 97 09/16/17 12:00 09/16/17 12:00 09/16/17 12:00 09/16/17 12:00 09/16/17 05:26 Intake and Output: 09/16/17 09/16/17 06:59 18:59 Intake Total 580 Output Total 0 Balance 580 - Medications Medications: Current Medications Acetaminophen (Tylenol 325mg Tab) 650 mg PO Q6H PRN PRN Reason: Pain, Mild (1-3) Last Admin: 09/16/17 02:32 Dose: 650 mg Albuterol/Ipratropium (Duoneb 3 Mg/0.5 Mg (3 Ml) Ud) 3 ml IH QID [facility] Last Admin: 09/16/17 16:29 Dose: Not Given Aspirin (Ecotrin) 81 mg PO DAILY [facility] Last Admin: 09/16/17 09:22 Dose: 81 mg Atorvastatin Calcium (Lipitor) 10 mg PO DIN [facility] Last Admin: 09/15/17 17:21 Dose: 10 mg Carvedilol (Coreg) 12.5 mg PO BID [facility] Last Admin: 09/16/17 09:23 Dose: 12.5 mg Doxycycline Hyclate (Doryx) 100 mg PO Q12 [facility] PRN Reason: Protocol Stop: 09/19/17 10:01 Last Admin: 09/16/17 09:22 Dose: 100 mg Enoxaparin Sodium (Lovenox) 30 mg SC DAILY [facility] PRN Reason: Protocol Last Admin: 09/16/17 09:24 Dose: 30 mg Furosemide (Lasix) 40 mg PO DAILY [facility] Home Med (Home Med) 1 unit PO DAILY [facility] Last Admin: 09/16/17 09:27 Dose: 1 unit Meropenem (Merrem Iv 1 Gm Premix) 50 mls @ 100 mls/hr IVPB Q12 [facility] PRN Reason: Protocol Last Admin: 09/16/17 09:24 Dose: 100 mls/hr Losartan Potassium (Cozaar) 50 mg PO DAILY [facility] Last Admin: 09/16/17 09:22 Dose: 50 mg Non-Formulary Medication (Aclidinium [place] [Tudorza Pressair]) 400 mcg IH DAILY [facility] Last Admin: 09/16/17 12:12 Dose: Not Given Pantoprazole Sodium (Protonix Ec Tab) 40 mg PO DAILY [facility] Last Admin: 09/16/17 09:23 Dose: 40 mg Potassium Chloride (Klor-Con 10) 10 meq PO BRK [facility] Last Admin: 09/16/17 09:23 Dose: 10 meq - Labs Labs: 09/14/17 03:05 09/15/17 10:30 PT 14.7 SECONDS (9.4-12.5) H 09/10/17 09:40 INR 1.27 (0.93-1.08) H 09/10/17 09:40 APTT 28.0 Seconds (25.1-36.5) 09/10/17 09:40 - Constitutional Appears: No Acute Distress (he) - Head Exam Head Exam: NORMOCEPHALIC - Eye Exam Eye Exam: Normal appearance. absent: Scleral icterus - ENT Exam ENT Exam: Mucous Membranes Moist - Respiratory Exam Respiratory Exam: NORMAL BREATHING PATTERN. absent: Respiratory Distress - Cardiovascular Exam Cardiovascular Exam: +S1, +S2 - GI/Abdominal Exam GI & Abdominal Exam: Distended, Soft, Tenderness (epigastric), Diminished Bowel Sounds, Normal Bowel Sounds. absent: Guarding, Rebound - Extremities Exam Extremities Exam: absent: Calf Tenderness - Neurological Exam Neurological Exam: Alert, Awake (okay), Oriented x3 Assessment and Plan - Assessment and Plan (Free Text) Assessment: ASSESSMENT: Epigastric pain: gastroparesis/gallstones Pneumonia UTI Gallstones CHF Coronary artery disease Plan: request abdominal US Continue PPI Diet as tolerated monitor LFTs On IV antibiotics and oral antibiotics Seen and discussed w/ Dr. Martinez.
[2017-09-16 17:40] VITALS: BP 132/68; PULSE 74; RESP 16; TEMP 98.7
--- NOTE | 2017-09-17 09:16 | PN ---
DATE: 09/16/2017 REASON FOR CONSULTATION AND FOLLOWUP: Shortness of breath, CHF, respiratory tract infection, pneumonia, history of aortic valve replacement, history of coronary artery disease, history of coronary artery bypass surgery, being followed at [facility] [place]. SUBJECTIVE: This patient denies any chest pain, shortness of breath, or any palpitation. Yesterday, she got neck pain, now feels better. OBJECTIVE: GENERAL: Not in apparent distress, sitting at bedside, having the breakfast. VITAL SIGNS: Temperature afebrile, heart rate 72, blood pressure 96/65. HEENT: PERRLA, intact. NECK: Supple. No carotid bruits or thyromegaly. CHEST: Clear to auscultation. HEART: S1 and S2, regular. ABDOMEN: Soft. EXTREMITIES: Clubbing and cyanosis negative. LABORATORY DATA: Blood workup as follows: WBC 7, hemoglobin 9.3, hematocrit 28.5, and platelet count 258. Chemistry shows sodium 139, potassium 4.3, chloride 108, carbon dioxide 20, anion gap of 16. BUN 34, creatinine 1. Repeat chest x-ray yesterday that shows nearly normalized pulmonary venous congestion. No definite infiltrate bilaterally. IMPRESSION: An 87-year-old female with past medical history significant for bioprosthetic aortic valve replacement, history of coronary artery bypass graft, being followed at [facility] [place], admitted with pneumonia, urinary tract infection. The patient had echocardiography done yesterday that revealed ejection fraction 50%. No vegetation noted. Bioprosthetic aortic valve, trace aortic regurgitation, moderate severe mitral regurgitation, moderate severe tricuspid regurgitation, right ventricular systolic pressure 66, preserved left ventricular function. Congestive heart failure secondary to severe mitral regurgitation as well as diastolic dysfunction. RECOMMENDATIONS: Continue antibiotic, continue gentle diuretics, continue negative fluid balance. We will start p.o. Lasix and start p.o. 40 from tomorrow. Continue DVT prophylaxis, continue antibiotic. We will discontinue telemetry. Multiple times attempted to get information from [facility] [place], left a message to Dr. Deann Gustafson, but did not get the call back. I explained the patient's family upon discharge the patient needs to follow up at [facility] [place]. We will change Lasix to p.o. 40 from tomorrow. Repeat chest x-ray, resolved pneumonia as well as CHF. Kirstin Ortega MD [facility] # [id number]
--- NOTE | 2017-09-18 00:50 | DS ---
SUMMARY: I was called last night by Marialuisa Remy, the director of case management, because Dr. Lieberman was not able to be notified or found for at least 4 to 8 hours. After multiple calls, the family told Marialuisa Remy that they are very irate that the patient is not discharged, and that the son is a physician, and he does not understand why they cannot get a discharge order. I was called to help with this case. I tried contacting Dr. Lieberman at that time after the phone call of Marialuisa Remy, and I could not reach him, it went to a voice mail and the box was full, there was no space even to leave a message. I tried calling the office, I could not get him, and I tried again this morning, on dictating at 08:30 in the morning trying to call Dr. Lieberman to let him know that I discharged the patient last night. I spoke to the nurse at length about the meds, went over all of his labs, his progress. Also I discussed with Dr. Holt, Infectious Disease doctor, went over the antibiotics and he said she did not need anymore antibiotics and she is capable of being discharged. I went over the vital signs which were 98.7, 74 pulse, 132/68, 16 respiratory rate. I went over the medications, Coreg, Cozaar, DuoNeb, Ecotrin, potassium, Lasix, Lipitor, Protonix, and she does not need any more IV antibiotics or any antibiotics p.o. either as per the Infectious Disease doctor. The labs were, 7 white count, 9.3 hemoglobin, 28.5 hematocrit with 258 platelets. Sodium 139, potassium 4.3, BUN 34, creatinine 1, which is better. GFR is 63, sugar is 125, calcium is 9.8. Her BNP also dropped from 6900 to 3900. She was treated for a E. coli UTI, right lower lobe pneumonia, and I discharged her because the doctor on record was not able to be found. I also texted with the [employer]OMOT[employer] PROFESSION[employer] of [facility] to let him know what I did and what is going on, so he is aware of what happened. Chevy Benjamin DO [facility] # [id number]
== END 2017-09-16 21:00 | disposition home or self-care (01) | DRG 291 ==
LOC: ED 09:06 → ERH 11:45 → 3RSO 13:24
PROVIDERS: ADMIT Internal Medicine; ATTEND Internal Medicine
DX: I11.0 Hypertensive heart disease with heart failure (principal); I50.43 Acute on chronic combined systolic (congestive) and diastolic (congestive) heart failure; J18.9 Pneumonia, unspecified organism; N39.0 Urinary tract infection, site not specified; N17.9 Acute kidney failure, unspecified; I47.2 Ventricular tachycardia; K31.84 Gastroparesis; K80.20 Calculus of gallbladder without cholecystitis without obstruction; I25.10 Atherosclerotic heart disease of native coronary artery without angina pectoris; B96.20 Unspecified Escherichia coli [E. coli] as the cause of diseases classified elsewhere; Z16.12 Extended spectrum beta lactamase (ESBL) resistance; K21.9 Gastro-esophageal reflux disease without esophagitis; E78.00 Pure hypercholesterolemia, unspecified; K44.9 Diaphragmatic hernia without obstruction or gangrene; M19.019 Primary osteoarthritis, unspecified shoulder; M17.10 Unilateral primary osteoarthritis, unspecified knee; G47.30 Sleep apnea, unspecified; J20.9 Acute bronchitis, unspecified; I08.3 Combined rheumatic disorders of mitral, aortic and tricuspid valves; I95.1 Orthostatic hypotension; K52.9 Noninfective gastroenteritis and colitis, unspecified; D50.9 Iron deficiency anemia, unspecified; I27.20 Pulmonary hypertension, unspecified; Z95.3 Presence of xenogenic heart valve; Z95.1 Presence of aortocoronary bypass graft